=== PATIENT | male | born 1945 | race Caucasian/White ===

== ENCOUNTER 2020-12-08 10:58 | Outpatient (REF) | payer MEDICARE, SELFPAY ==
[2020-12-08 12:25] LABS: MANUAL DIFF FLAG NO
[2020-12-08 12:29] LABS: Basophils Percent Auto 0.7 % (0-2); Eosinophils Absolute Auto 0.1 X10*3/uL (0.0-0.4); Eosinophils Percent Auto 2.6 % (0-4); Hematocrit 39.4 % (42-52); Hemoglobin 12.8 g/dl (14.0-18.0); Imm Gran Abs Auto 0.02 X10*3/uL (0.00-0.03); Imm Gran Pct Auto 0.5 % (0.0-0.4); Mean Corpuscular HGB Conc 32.5 g/dl (31.0-36.0); Mean Corpuscular Volume 92.3 fL (80-98); Mean Platelet Volume 9.9 fL (9.4-12.4); Monocytes Absolute Auto 0.5 X10*3/uL (0.1-1.2); Monocytes Percent Auto 11.8 % (2-11); Neutrophils Absolute Auto 2.5 X10*3/uL (2.0-8.3); Neutrophils Percent Auto 60.4 % (45-73); Platelet Count 193 X10*3/uL (160-400); Red Blood Count 4.27 X10*6/uL (4.60-5.80); Red Cell Distribution Width 13.4 % (11.0-16.0); White Blood Count 4.2 X10*3/uL (4.8-10.8)
[2020-12-08 12:50] LABS: Alanine Aminotransferase 18 U/L (0-40); Albumin Level 4.1 g/dL (3.5-5.0); Alkaline Phosphatase 78 U/L (39-117); Anion Gap 11 (12-20); Aspartate Amino Transferase 19 U/L (5-37); Bilirubin Direct 0.2 mg/dL (0.0-0.5); Bilirubin Total 0.5 mg/dL (0.0-1.0); Blood Urea Nitrogen 13 mg/dL (9-16); Calcium 8.9 mg/dL (8.4-10.2); Carbon Dioxide 27 mmol/L (22-29); Chloride 106 mmol/L (96-108); Estimated Glomerular Filt Rate > 60; Magnesium 2.1 mg/dL (1.6-2.6); Potassium 5.2 mmol/L (3.3-5.1); Sodium 139 mmol/L (135-145); Total Protein 6.4 g/dL (6.5-8.0); Uric Acid 7.5 mg/dL (3.4-7.0)
[2020-12-08 12:58] LABS: Creatinine Urine 135.04 mg/dL; Protein/Creatinine Ratio, Ur 0.06 (<0.2); Total Protein Urine Random 8 mg/dL (<12)
[2020-12-08 12:59] LABS: Vitamin D 25-OH Total 22.4 ng/mL (>30)
[2020-12-10 10:36] LABS: Calcium (PTHI) 8.9 mg/dL (8.6-10.3); PTHI 80 pg/mL (14-64)
== END 2020-12-08 10:59 | disposition home or self-care (01) ==
LOC: HO.LAB 10:58
PROVIDERS: PCP Internal Medicine; Visit Provider Internal Medicine Nephrology
DX: I12.9 Hypertensive chronic kidney disease with stage 1 through stage 4 chronic kidney disease, or unspecified chronic kidney disease (principal); N18.2 Chronic kidney disease, stage 2 (mild); R80.9 Proteinuria, unspecified; E55.9 Vitamin D deficiency, unspecified; N25.81 Secondary hyperparathyroidism of renal origin; E87.5 Hyperkalemia; E87.1 Hypo-osmolality and hyponatremia; N13.8 Other obstructive and reflux uropathy
CPT/HCPCS: 36415; 80051; 80076; 82306; 82310; 82565; 83735; 83970; 84156; 84520; 84550; 85025

== ENCOUNTER 2021-07-09 12:14 | Outpatient (REF) | payer MEDICARE, SELFPAY ==
[2021-07-09 12:30] LABS: MANUAL DIFF FLAG NO
[2021-07-09 13:05] LABS: Basophils Percent Auto 0.6 % (0-2); Eosinophils Absolute Auto 0.2 X10*3/uL (0.0-0.4); Eosinophils Percent Auto 3.8 % (0-4); Hematocrit 38.6 % (42.0-52.0); Hemoglobin 12.8 g/dl (14.0-18.0); Imm Gran Abs Auto 0.02 X10*3/uL (0.00-0.03); Imm Gran Pct Auto 0.4 % (0.0-0.4); Lymphocytes Absolute Auto 1.2 X10*3/uL (1.2-4.9); Lymphocytes Percent Auto 23.3 % (20-40); Mean Corpuscular HGB Conc 33.2 g/dl (31.0-36.0); Mean Corpuscular Hemoglobin 30.3 pg (27.0-33.0); Mean Corpuscular Volume 91.3 fL (80.0-98.0); Mean Platelet Volume 9.7 fL (9.4-12.4); Monocytes Absolute Auto 0.6 X10*3/uL (0.1-1.2); Monocytes Percent Auto 11.2 % (2-11); Neutrophils Percent Auto 60.7 % (45-73); Platelet Count 186 X10*3/uL (160-400); Red Blood Count 4.23 X10*6/uL (4.60-5.80); Red Cell Distribution Width 13.1 % (11.0-16.0)
[2021-07-09 13:25] LABS: Anion Gap 9 (12-20); Blood Urea Nitrogen 15 mg/dL (9-16); Calcium 8.9 mg/dL (8.4-10.2); Carbon Dioxide 28 mmol/L (22-29); Chloride 102 mmol/L (96-108); Estimated Glomerular Filt Rate > 60; Magnesium 2.2 mg/dL (1.6-2.6); Phosphorus 2.9 mg/dL (2.7-4.5); Potassium 4.5 mmol/L (3.3-5.1); Sodium 134 mmol/L (135-145); Uric Acid 6.8 mg/dL (3.4-7.0)
[2021-07-09 13:44] LABS: Vitamin D 25-OH Total 14.8 ng/mL (>30)
[2021-07-09 13:44] LABS: Creatinine Urine 143.03 mg/dL; Protein/Creatinine Ratio, Ur 0.06 (<0.2); Total Protein Urine Random 8 mg/dL (<12)
[2021-07-10 18:01] LABS: Calcium (PTHI) 8.8 mg/dL (8.6-10.3); PTHI 91 pg/mL (14-64)
== END 2021-07-09 12:15 | disposition home or self-care (01) ==
LOC: HO.LAB 12:14
PROVIDERS: PCP Internal Medicine; Visit Provider Internal Medicine Nephrology
DX: I12.9 Hypertensive chronic kidney disease with stage 1 through stage 4 chronic kidney disease, or unspecified chronic kidney disease (principal); N18.2 Chronic kidney disease, stage 2 (mild); E87.1 Hypo-osmolality and hyponatremia; E87.5 Hyperkalemia
CPT/HCPCS: 36415; 80051; 82306; 82310; 82565; 83735; 83970; 84100; 84156; 84520; 84550; 85025

== ENCOUNTER → 2022-04-15 14:53 | Outpatient (BNVA) | payer MEDICARE, SELFPAY | PROVIDERS: PCP Internal Medicine; Visit Provider Surgery | DX: K64.8 Other hemorrhoids (principal) | CPT/HCPCS: 46600; 99202 ==

== ENCOUNTER 2022-04-16 09:16 | Emergency (ER) | payer MEDICARE, SELFPAY ==
[2022-04-16] VITALS (9 sets, daily range): BP systolic 134–180; BP diastolic 74–96; PULSE 59–82; RESP 13–18; TEMP 36.7–37.1; O2SAT 98–100; BMI 26.1
--- NOTE | ~2022-04-16 | CT_ITS ---
EXAMINATION: CT HEAD WITHOUT CONTRAST CLINICAL INFORMATION: Dizziness. COMPARISON: CT scans of the brain dating between October 20, 2015 and April 18, 2008. TECHNIQUE: Contiguous axial imaging was performed from the skull base to vertex without intravenous administration of contrast. This CT examination was performed using dose optimization techniques as appropriate, variously including the following: *Automated exposure control *Adjustment of mA and/or kV according to patient size (this includes techniques or standardized protocols for targeted exams where dose is matched to indication/reason for exam; i.e. extremities or head) *Use of iterative reconstruction technique DLP: 676 mGy-cm FINDINGS: No intracranial hemorrhage, large infarction, or mass lesion is seen. No extra-axial collection is appreciated. The ventricles are normal in size and configuration without evidence of hydrocephalus. Left maxillary sinus mucosal thickening. Mild mucosal thickening involving the frontal infundibula, bilaterally. The mastoid air cells are clear. Bilateral lens extractions. CT/CT head/brain wo IV con IMPRESSION: No acute intracranial finding. Chronic sinusitis.
--- NOTE | ~2022-04-16 | XR_ITS ---
EXAMINATION: XR CHEST CLINICAL INFORMATION: Shortness of breath COMPARISON: October 20, [address] scan of July 21, 2012 TECHNIQUE: Frontal view of the chest was obtained. FINDINGS: No significant abnormality is noted involving the heart, lungs, mediastinum, bony thorax or soft tissues. Stable discoid scar left base. XR/XR chest 1V IMPRESSION: No acute disease.
--- NOTE | ~2022-04-16 | CT_ITS ---
EXAMINATION: CT ANGIOGRAM OF THE HEAD CT ANGIOGRAM OF THE NECK CLINICAL INFORMATION: Lightheadedness. COMPARISON: CT scan of the head earlier 04/16/2022. TECHNIQUE: Test bolus series followed by intravenous administration 17 mL of Omnipaque 350. Helical imaging was performed in the axial plane from the mediastinum to the skull vertex. The degree of stenosis is based off NASCET criteria. The data was processed at the cytotechnologist workstation for generation of MIP images. Three-dimensional volume rendered reformatted images were also generated at an offline 3-D workstation. This CT examination was performed using dose optimization techniques as appropriate, variously including the following: *Automated exposure control *Adjustment of mA and/or kV according to patient size (this includes techniques or standardized protocols for targeted exams where dose is matched to indication/reason for exam; i.e. extremities or head) *Use of iterative reconstruction technique DLP: 1556 mGy-cm. FINDINGS: CT Head: There is no evidence of acute intracranial hemorrhage or territorial infarction. No abnormal mass-effect or midline shift is seen. Irving to white matter differentiation is well preserved. No extra-axial fluid collections are identified. There is no abnormal enhancement. The ventricles and sulci are slightly commensurately prominent consistent with diffuse volume loss. There is mild low attenuation in the periventricular and subcortical white matter, most consistent with chronic microvascular ischemic changes. There are no acute osseous or soft tissue abnormalities. There are sequelae, of prior paranasal sinus surgery, likely prior right maxillary Boogie-Khurram procedure. There is likely a polyp in the left nasal cavity extending through the posterior nares. There is mucoperiosteal thickening in the left greater than right maxillary sinuses. There is mild opacification of the bilateral ethmoid sinuses. CTA Neck: There is a classic configuration of the aortic arch, with mild atheromatous calcification at the origins of the bilateral subclavian arteries. The great vessels of the neck are widely patent. The common carotid arteries are patent bilaterally. There are mild atheromatous calcifications in the carotid bifurcations bilaterally without flow-limiting stenosis. The cervical internal carotid arteries have uniform caliber and opacify normally. The origins of the vertebral arteries are well demonstrated. Both vertebral arteries are patent throughout their cervical course extending intradurally. The vertebral arteries are codominant. Nonvascular: There is no cervical lymphadenopathy. The thyroid gland is normal in size. There are moderate spondylitic and facet arthropathic changes in the cervical spine. The visualized upper lung ledezma are well-aerated. CTA Head: There are mild atheromatous calcifications of the cavernous internal carotid arteries; otherwise the intracranial internal carotid arteries and their bifurcations appear normal. The middle and anterior cerebral arteries bilaterally demonstrate normal caliber with no evidence of focal stenosis, aneurysm or vascular malformation. There is normal arborization of the middle cerebral artery branches. The anterior communicating artery is normal. In the posterior circulation, the intradural vertebral arteries are codominant and have uniform caliber. The basilar artery appears normal. The left posterior cerebral artery has a origin. The posterior cerebral arteries have normal caliber bilaterally. The venous sinuses opacify normally. CT/CT angio head neck IMPRESSION: CT head and neck: 1. There are no acute bleeds or territorial infarcts. No masses are demonstrated. There is no abnormal enhancement. 2. There are chronic microvascular ischemic changes and there is diffuse volume loss. 3. There is no cervical lymphadenopathy. There is spondylosis in the cervical spine. CTA head and neck: 1. There are no flow-limiting stenoses in the upper thoracic and cervical vascular structures. There are mild atheromatous calcifications. 2. Intracranially no focal stenoses, aneurysms or vascular malformations.
--- NOTE | 2022-04-16 09:36 | ECG_ITS ---
Test Reason : SOB Blood Pressure : / mmHG Vent. Rate : 069 BPM Atrial Rate : 069 BPM P-R Int : 204 ms QRS Dur : 092 ms QT Int : 392 ms P-R-T Axes : 060 038 038 degrees QTc Int : 420 ms Normal sinus rhythm Normal ECG When compared with ECG of 30-SEP-2016 11:02, No significant change was found Referred By: Claire Lim Electronically Signed By:REBECA KILLIAN MD
--- NOTE | 2022-04-16 09:43 | ED.SOB ---
HPI - SOB/Dyspnea General Chief Complaint: Dyspnea Stated Complaint: SOB/high BP Time Seen by Provider: 04/16/22 09:33 Source: patient Mode of arrival: ambulatory Limitations: no limitations History of Present Illness HPI Narrative: 76 yo male with history of HTN, HLD, CKDII, anemia, nephrolithiasis with left renal atrophy who presents to the ER for evaluation of lightheadedness and SOB that occurred while at work 2 hours ago and have improved since. He states he was doing his regular work at the [employer], mild-moderately strenuous activity when he started to feel unwell. He felt lightheaded and SOB, like he needed to take deep breaths. He sat down and told his co-workers he didn't feel well. He was pale but not diaphoretic. Hx BP dropping in the past so he drank 4 water bottles because he thought he was dehydrated. He slowly started to feel better. BP checked at work and was 200 systolic. His Denies any chest pain during the events. He took his home norvasc and metoprolol. No nausea, vomiting or abdominal pain. MD elicited complaint: shortness of breath Onset (ago): hour(s) Timing: improved Severity: moderate Exacerbating factors: exertion and movement Relieving factors: rest Associated symptoms: lightheadedness Treatment prior to arrival: none Related Data Home oxygen amount: none Home Medications Medication Instructions Recorded Confirmed metoprolol succinate 100 mg 100 mg PO DAILY 04/15/22 04/15/22 tablet,extended release 24 hr Previous Rx's Medication Instructions Recorded amlodipine 5 mg tablet 5 mg PO DAILY #90 tabs 09/09/20 hydrocortisone 2.5 % topical cream 1 appl NY BID-QID PRN hemorrhoids 04/15/22 with perineal applicator #30 grams hydrocortisone acetate 25 mg 25 mg NY BID PRN hemorrhoid pain 04/15/22 rectal suppository (Anucort-HC) #24 ea Allergies Allergy/AdvReac Type Severity Reaction Status Date / Time No Known Allergies Allergy Mild NKA Unverified 04/15/22 15:07 hydrochlorothiazide Allergy Unknown Alcohol Verified 04/15/22 15:07 hyponatremia lisinopril Allergy Unknown hyperkalemi Verified 04/15/22 15:07 a Review of Systems Review of Systems: Constitutional: No Fever, No Chills ENT/Mouth: No sore throat, No Rhinorrhea, No Swallowing Difficulty Eyes: No Eye Pain, No Swelling, No Redness Cardiovascular: No Chest Pain, + SOB, No Orthopnea, No Edema Respiratory: No Cough, No Sputum, No Wheezing, No dyspnea Gastrointestinal: No Nausea, No Vomiting, No Diarrhea, No abdominal Pain, No Hematochezia, No Melena Genitourinary: No Dysuria, No Urinary Frequency, No Hematuria Musculoskeletal: No joint pain, No Myalgias Skin: No Skin Lesions, No rash Neuro: No Weakness, No Numbness, + Dizziness, No Headache Psych: No Anxiety/Panic, No Depression Heme/Lymph: No Bruising, No Lymphadenopathy Endocrine: No Polyuria, + Polydipsia PMFSH Past Medical History Medical History Anemia Hemorrhoids with complication History of hemorrhoids Hypercholesterolemia Hypertension Left renal stone Solitary kidney Vitamin D deficiency Surgical History H/O inguinal hernia repair H/O lithotripsy History of tonsillectomy History of umbilical hernia repair Social History Social History Alcohol intake: current Alcohol intake frequency: 3 or more drinks per day Alcohol type: beer Patient Tobacco Use Status: Never used Tobacco Use of substances other than those prescribed or required for medical reasons: No Advance Directives: Yes Advance Directives Information Provided: Yes Advance Directives on File: No Physical Exam Vital Signs: Vital Signs: Last Vital Signs Temp 98.7 F 04/16/22 15:39 Pulse 67 04/16/22 15:39 Resp 16 04/16/22 15:39 BP 166/87 H 04/16/22 15:39 Pulse Ox 99 04/16/22 15:39 O2 Del Method 04/16/22 15:39 BMI result Body Mass Index 26.1 Appearance: Alert. Oriented X3. No acute distress. Eyes: Pupils equal, round and reactive to light. ENT: Pharynx normal. Neck: Normal inspection. Neck supple. CVS: Normal heart rate and rhythm. Pulses normal. Respiratory: No respiratory distress. Breath sounds normal. Abdomen: Soft and nontender. +BS x4 Skin: Skin warm and dry. Normal skin color. Normal skin turgor. No rashes. Extremities: No lower extremity edema. Neuro: Oriented X 3. No motor deficit. No sensory deficit. CN II-XII intact. Normal finger to nose and heel to lockhart bilaterally. Strength is equal and symmetrical throughout. Course Course Course Narrative: 76 yo male with history of HTN, HLD who presents to the ER for evaluation of lightheadedness, high BP and SOB that started at 8am today. Improved with laying down, when he stands up he is slightly lightheaded and feels off. On arrival to the ER his BP is 180/96, normal HR and oxygenation. Lungs are clear. He took his home Norvasc 5 mg and Metoprolol 100 mg this morning. Neuro exam is nonfocal. Steady gait with normal cerebellar function, doubt posterior stroke as symptoms are relieved with laying down. Will get labs, EKG, trop, CT head, DDIMER and monitor. Reevaluation(s) Reevaluation #1: Labs showing sodium 127. Not on diruetics or psych meds. He did drink 4 bottles of water when he was not feeling well at work this morning because he thought he was dehydrated. He says the last time he felt this way his BP was low. Current BP improved to the 150s systolic without intervention. Will give 1L NS bolus, check orthostatic VS and repeat sodium with repeat troponin. Inital trop neg, DDIMER neg. Reevaluation #2: 2nd troponin negative. He feels better but still off. He has intermittent lightheadeded but not constant. +Orthostatics with drop in BP 160 --> 130s with standing but never hypotensive. Case d/w Dr. Catalan - will get CTA head/neck to look at the vasculature. Given his symptoms come/go and seem to be more positional, doubt posterior CVA. Reevaluation #3: CTA head/neck - No acute intracranial findings. There is moderate chronic microangiopathy.? 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 - Atherosclerotic calcification results in a moderate stenosis of the left vertebral artery at its dural insertion. No additional significant arterial stenoses within the neck.? - No acute arterial occlusions intracranially. Patient is feeling better but he is worried about his BP, currently 160/80. He is ambulatory with no current symptoms. He would like to go home. He will follow-up with Dr. winkler early next week. He is given strict return precautions and comfortable DC home today he will monitor his blood pressure at home and keep a record with his 's blood pressure cuff. MDM - SOB/Dyspnea Medical Records Attestation: I reviewed the patient's medical records. Lab Data Attestation: I reviewed the patient's lab results. Result diagrams: 04/16/22 10:29 04/16/22 13:23 Labs: Lab Results 04/16/22 04/16/22 04/16/22 Range/Units 10:19 10: 10:29 WBC 4.3 L (4.8-10.8) X10*3/uL RBC 4.40 L (4.60-5.80) X10*6/uL Hgb 13.4 L (14.0-18.0) g/dl Hct 39.0 L (42.0-52.0) % MCV 88.6 (80.0-98.0) fL MCH 30.5 (27.0-33.0) pg MCHC 34.4 (31.0-36.0) g/dl RDW 12.7 (11.0-16.0) % Plt Count 169 (160-400) X10*3/uL MPV 9.3 L (9.4-12.4) fL Immature Gran % (Auto) 0.2 (0.0-0.4) % Neut % (Auto) 70.3 (45-73) % Lymph % (Auto) 17.3 L (20-40) % Crane % (Auto) 10.5 (2-11) % Eos % (Auto) 1.2 (0-4) % Baso % (Auto) 0.5 (0-2) % Lymph # (Auto) 0.7 L (1.2-4.9) X10*3/uL Crane # (Auto) 0.5 (0.1-1.2) X10*3/uL Eos # (Auto) 0.1 (0.0-0.4) X10*3/uL Baso # (Auto) 0.0 (0.0-0.2) X10*3/uL Abs Immat Gran (auto) 0.01 (0.00-0.03) X10*3/uL Absolute Neuts (auto) 3.0 (2.0-8.3) x10*3/uL Absolute Nucleated RBC 0.000 (0.0-0.012) X10*3/uL Nucleated RBC % (auto) 0.0 (0.0-0.2) /100WBC D-Dimer High Sensitivty NG/ML Sodium 127 L (135-145) mmol/L Potassium 4.3 (3.3-5.1) mmol/L Chloride 94 L (96-108) mmol/L Carbon Dioxide 22 (22-29) mmol/L Anion Gap 15 (12-20) BUN 12 (9-16) mg/dL Creatinine 0.82 (0.5-1.4) mg/dL Estim Creat Clear Calc 80.3 Estimated GFR > 60 Random Glucose 103 (60-115) mg/dL Osmolality (281-305) mosm/kg Calcium 8.6 (8.4-10.2) mg/dL Magnesium 2.2 (1.6-2.6) mg/dL Total Bilirubin 0.4 (0.0-1.0) mg/dL Direct Bilirubin 0.2 (0.0-0.5) mg/dL AST 23 (5-37) U/L ALT 16 (0-40) U/L Alkaline Phosphatase 73 (39-117) U/L Troponin I High Sens (<3.5-35.0) ng/L B-Natriuretic Peptide (<100) pg/mL Total Protein 6.9 (6.5-8.0) g/dL Albumin 4.1 (3.5-5.0) g/dL COVID-19 (OPAL) Negative (Negative) COVID-19 Clin Com See Note 04/16/22 04/16/22 04/16/22 Range/Units 10:29 10:29 10:29 WBC (4.8-10.8) X10*3/uL RBC (4.60-5.80) X10*6/uL Hgb (14.0-18.0) g/dl Hct (42.0-52.0) % MCV (80.0-98.0) fL MCH (27.0-33.0) pg MCHC (31.0-36.0) g/dl RDW (11.0-16.0) % Plt Count (160-400) X10*3/uL MPV (9.4-12.4) fL Immature Gran % (Auto) (0.0-0.4) % Neut % (Auto) (45-73) % Lymph % (Auto) (20-40) % Crane % (Auto) (2-11) % Eos % (Auto) (0-4) % Baso % (Auto) (0-2) % Lymph # (Auto) (1.2-4.9) X10*3/uL Crane # (Auto) (0.1-1.2) X10*3/uL Eos # (Auto) (0.0-0.4) X10*3/uL Baso # (Auto) (0.0-0.2) X10*3/uL Abs Immat Gran (auto) (0.00-0.03) X10*3/uL Absolute Neuts (auto) (2.0-8.3) x10*3/uL Absolute Nucleated RBC (0.0-0.012) X10*3/uL Nucleated RBC % (auto) (0.0-0.2) /100WBC D-Dimer High Sensitivty < 150 NG/ML Sodium (135-145) mmol/L Potassium (3.3-5.1) mmol/L Chloride (96-108) mmol/L Carbon Dioxide (22-29) mmol/L Anion Gap (12-20) BUN (9-16) mg/dL Creatinine (0.5-1.4) mg/dL Estim Creat Clear Calc Estimated GFR Random Glucose (60-115) mg/dL Osmolality 263 L (281-305) mosm/kg Calcium (8.4-10.2) mg/dL Magnesium (1.6-2.6) mg/dL Total Bilirubin (0.0-1.0) mg/dL Direct Bilirubin (0.0-0.5) mg/dL AST (5-37) U/L ALT (0-40) U/L Alkaline Phosphatase (39-117) U/L Troponin I High Sens < 3.5 (<3.5-35.0) ng/L B-Natriuretic Peptide 27 (<100) pg/mL Total Protein (6.5-8.0) g/dL Albumin (3.5-5.0) g/dL COVID-19 (OPAL) (Negative) COVID-19 Clin Com 04/16/22 04/16/22 Range/Units 13:23 13:23 WBC (4.8-10.8) X10*3/uL RBC (4.60-5.80) X10*6/uL Hgb (14.0-18.0) g/dl Hct (42.0-52.0) % MCV (80.0-98.0) fL MCH (27.0-33.0) pg MCHC (31.0-36.0) g/dl RDW (11.0-16.0) % Plt Count (160-400) X10*3/uL MPV (9.4-12.4) fL Immature Gran % (Auto) (0.0-0.4) % Neut % (Auto) (45-73) % Lymph % (Auto) (20-40) % Crane % (Auto) (2-11) % Eos % (Auto) (0-4) % Baso % (Auto) (0-2) % Lymph # (Auto) (1.2-4.9) X10*3/uL Crane # (Auto) (0.1-1.2) X10*3/uL Eos # (Auto) (0.0-0.4) X10*3/uL Baso # (Auto) (0.0-0.2) X10*3/uL Abs Immat Gran (auto) (0.00-0.03) X10*3/uL Absolute Neuts (auto) (2.0-8.3) x10*3/uL Absolute Nucleated RBC (0.0-0.012) X10*3/uL Nucleated RBC % (auto) (0.0-0.2) /100WBC D-Dimer High Sensitivty NG/ML Sodium 130 L (135-145) mmol/L Potassium (3.3-5.1) mmol/L Chloride (96-108) mmol/L Carbon Dioxide (22-29) mmol/L Anion Gap (12-20) BUN (9-16) mg/dL Creatinine (0.5-1.4) mg/dL Estim Creat Clear Calc Estimated GFR Random Glucose (60-115) mg/dL Osmolality (281-305) mosm/kg Calcium (8.4-10.2) mg/dL Magnesium (1.6-2.6) mg/dL Total Bilirubin (0.0-1.0) mg/dL Direct Bilirubin (0.0-0.5) mg/dL AST (5-37) U/L ALT (0-40) U/L Alkaline Phosphatase (39-117) U/L Troponin I High Sens < 3.5 (<3.5-35.0) ng/L B-Natriuretic Peptide (<100) pg/mL Total Protein (6.5-8.0) g/dL Albumin (3.5-5.0) g/dL COVID-19 (OPAL) (Negative) COVID-19 Clin Com ECG Data Attestation: I personally reviewed and interpreted this ECG as follows: ECG interpretation date: 04/16/22 ECG interpretation time: 09:59 Prior ECG tracings: available for review Interpretation: normal sinus rhythm, HR 69 bpm, normal QTC, normal QRS, no ST segment elevation or depression Critical Care Time Critical Care Time Critical Care Time: No Discharge Plan Discharge Clinical Impression: Intermittent lightheadedness, Hypertension Patient Disposition: Home, Self-Care Instructions: Hyponatremia (ED), Hypertension (ED) Additional Instructions: Your labs showed a mildly low sodium level. Your CT scans today did not show any significant abnormalities. Recommend rest this weekend. Follow up with your doctor early next week. If you develop new or worsening symptoms call 911 or come back to the ER for further evaluation. Prescriptions: No Action amlodipine 5 mg tablet 5 mg PO DAILY Qty: 90 1RF hydrocortisone 2.5 % cream with perineal applicator 1 appl [place] BID-QID PRN (Reason: hemorrhoids) Qty: 30 0RF metoprolol succinate 100 mg tablet extended release 24 hr 100 mg PO DAILY hydrocortisone acetate [Anucort-HC] 25 mg suppository 25 mg [place] BID PRN (Reason: hemorrhoid pain) Qty: 24 0RF Referrals: Po,Dori Cortes MD [Primary Care Provider] -
[2022-04-16 10:38] LABS: MANUAL DIFF FLAG NO
[2022-04-16 10:45] LABS: Basophils Percent Auto 0.5 % (0-2); Eosinophils Absolute Auto 0.1 X10*3/uL (0.0-0.4); Eosinophils Percent Auto 1.2 % (0-4); Hemoglobin 13.4 g/dl (14.0-18.0); Imm Gran Abs Auto 0.01 X10*3/uL (0.00-0.03); Imm Gran Pct Auto 0.2 % (0.0-0.4); Lymphocytes Absolute Auto 0.7 X10*3/uL (1.2-4.9); Lymphocytes Percent Auto 17.3 % (20-40); Mean Corpuscular HGB Conc 34.4 g/dl (31.0-36.0); Mean Corpuscular Hemoglobin 30.5 pg (27.0-33.0); Mean Corpuscular Volume 88.6 fL (80.0-98.0); Mean Platelet Volume 9.3 fL (9.4-12.4); Monocytes Absolute Auto 0.5 X10*3/uL (0.1-1.2); Monocytes Percent Auto 10.5 % (2-11); Neutrophils Percent Auto 70.3 % (45-73); Platelet Count 169 X10*3/uL (160-400); Red Cell Distribution Width 12.7 % (11.0-16.0); White Blood Count 4.3 X10*3/uL (4.8-10.8)
[2022-04-16 10:59] LABS: D Dimer High Sensitivity < 150 NG/ML
[2022-04-16 11:02] LABS: COVID-19 Test Negative (Negative)
[2022-04-16 11:07] LABS: Alanine Aminotransferase 16 U/L (0-40); Albumin Level 4.1 g/dL (3.5-5.0); Alkaline Phosphatase 73 U/L (39-117); Anion Gap 15 (12-20); Aspartate Amino Transferase 23 U/L (5-37); Bilirubin Direct 0.2 mg/dL (0.0-0.5); Bilirubin Total 0.4 mg/dL (0.0-1.0); Blood Urea Nitrogen 12 mg/dL (9-16); Calcium 8.6 mg/dL (8.4-10.2); Carbon Dioxide 22 mmol/L (22-29); Chloride 94 mmol/L (96-108); Creatinine Clr Calc Pharmacy 80.3; Estimated Glomerular Filt Rate > 60; Glucose Random 103 mg/dL (60-115); Magnesium 2.2 mg/dL (1.6-2.6); Potassium 4.3 mmol/L (3.3-5.1); Sodium 127 mmol/L (135-145); Total Protein 6.9 g/dL (6.5-8.0)
[2022-04-16 11:11] LABS: B Type Natriuretic Peptide 27 pg/mL (<100); Troponin-I High Sensitivity < 3.5 ng/L (<3.5-35.0)
[2022-04-16 11:54] LABS: Osmolality, Serum 263 mosm/kg (281-305)
[2022-04-16] MEDS: 0.9 % Sodium Chloride 1,000 ML 999 ML IVCONT ×2 (12:00→14:51)
[2022-04-16 13:39] LABS: Sodium 130 mmol/L (135-145)
[2022-04-16 13:48] LABS: Troponin-I High Sensitivity < 3.5 ng/L (<3.5-35.0)
[2022-04-16] MEDS: iohexoL 350 MG/ML 100 ML INFUS..BTL IV (16:18)
--- NOTE | 2022-04-16 17:01 | PC.NURSE ---
patient had multiple episode of loose stool stool ,care given ,patient resting in bed .
== END 2022-04-16 18:28 | disposition home or self-care (01) ==
PROVIDERS: Physician Assistant; Emergency Provider Emergency Medicine; PCP Internal Medicine
DX: R42 Dizziness and giddiness (principal); I12.9 Hypertensive chronic kidney disease with stage 1 through stage 4 chronic kidney disease, or unspecified chronic kidney disease; N18.30 Chronic kidney disease, stage 3 unspecified; Z20.822 Contact with and (suspected) exposure to COVID-19; R06.02 Shortness of breath; E78.5 Hyperlipidemia, unspecified; E78.00 Pure hypercholesterolemia, unspecified; Z79.899 Other long term (current) drug therapy
CPT/HCPCS: 36415; 70450; 70496; 70498; 71045; 80048; 80076; 83735; 83880; 83930; 84295; 84484; 85025; 85379; 87635; 93005; 99284; 99285; Q9967

== ENCOUNTER 2022-08-02 06:00 | Outpatient (REF) | payer MEDICARE, SELFPAY ==
[2022-08-02 06:03] LABS: MANUAL DIFF FLAG NO
[2022-08-02 07:42] LABS: Basophils Percent Auto 0.9 % (0-2); Eosinophils Absolute Auto 0.2 X10*3/uL (0.0-0.4); Eosinophils Percent Auto 3.5 % (0-4); Hematocrit 41.4 % (42.0-52.0); Imm Gran Abs Auto 0.02 X10*3/uL (0.00-0.03); Imm Gran Pct Auto 0.4 % (0.0-0.4); Lymphocytes Absolute Auto 1.1 X10*3/uL (1.2-4.9); Lymphocytes Percent Auto 23.8 % (20-40); Mean Corpuscular HGB Conc 33.8 g/dl (31.0-36.0); Mean Corpuscular Hemoglobin 30.4 pg (27.0-33.0); Mean Corpuscular Volume 89.8 fL (80.0-98.0); Mean Platelet Volume 9.5 fL (9.4-12.4); Monocytes Absolute Auto 0.5 X10*3/uL (0.1-1.2); Monocytes Percent Auto 11.7 % (2-11); Neutrophils Absolute Auto 2.7 x10*3/uL (2.0-8.3); Neutrophils Percent Auto 59.7 % (45-73); Platelet Count 233 X10*3/uL (160-400); Red Blood Count 4.61 X10*6/uL (4.60-5.80); Red Cell Distribution Width 12.8 % (11.0-16.0); White Blood Count 4.5 X10*3/uL (4.8-10.8)
[2022-08-02 08:19] LABS: Alanine Aminotransferase 14 U/L (0-40); Albumin Level 3.9 g/dL (3.5-5.0); Alkaline Phosphatase 68 U/L (39-117); Anion Gap 14 (12-20); Aspartate Amino Transferase 19 U/L (5-37); Bilirubin Total 0.7 mg/dL (0.0-1.0); Blood Urea Nitrogen 16 mg/dL (9-16); Calcium 8.9 mg/dL (8.4-10.2); Carbon Dioxide 26 mmol/L (22-29); Chloride 99 mmol/L (96-108); Cholesterol 211 mg/dL; Estimated Glomerular Filt Rate > 60; Glucose Random 96 mg/dL (60-115); HDL Cholesterol 89 mg/dL; LDL Cholesterol Calculated 114 mg/dl; Sodium 134 mmol/L (135-145); Total Protein 6.4 g/dL (6.5-8.0); Triglycerides 43 mg/dL
[2022-08-02 08:37] LABS: Folate 7.4 ng/mL (> or = 4.0); Free T4 (Free Thyroxine) 0.95 ng/dL (0.71-1.85); Thyroid Stimulating Hormone 3.24 uIU/mL (0.32-4.0); Vitamin B12 323 pg/mL (200-900)
== END 2022-08-02 06:01 | disposition home or self-care (01) ==
LOC: HO.LAB 06:00
PROVIDERS: PCP Internal Medicine; Visit Provider Internal Medicine
DX: E78.00 Pure hypercholesterolemia, unspecified (principal)
CPT/HCPCS: 36415; 80053; 80061; 82607; 82746; 84439; 84443; 85025

== ENCOUNTER 2022-12-28 10:32 | Emergency (ER) | payer MEDICARE, SELFPAY ==
[2022-12-28 10:36] VITALS: BP 175/91; PULSE 93; RESP 16; TEMP 36.5; O2SAT 99; BMI 26.5
--- NOTE | 2022-12-28 10:48 | ED.SKABFB ---
HPI - Skin/Abscess/Foreign Bdy General Chief complaint: Skin/Abscess/Foreign Body Stated complaint: Cellulitis Time Seen by Provider: 12/28/22 10:40 Source: patient Mode of arrival: ambulatory Limitations: no limitations History of Present Illness HPI narrative: 77-year-old male with a history of high blood pressure and high cholesterol presents to the ER with complaints of itching rash to the right lower leg for the last 3 days. Patient reports he went yesterday to urgent care and was given a prescription for cephalexin. He has taken 4 tablets since he was given the prescription. He feels today that the rash is more red in color which prompted his visit. He does not feel that it has spread. He denies any fevers, chills. He describes the rash is itching but denies any pain or burning of the site. He has been outside in his yd doing yd work but not in the last week. He does report an injury in August the right lower leg with a chronic wound that has not healed. At times this does get red and swollen. Related Data Home Medications Medication Instructions Recorded Confirmed metoprolol succinate 100 mg 100 mg PO DAILY 04/15/22 04/15/22 tablet,extended release 24 hr Previous Rx's Medication Instructions Recorded amlodipine 5 mg tablet 5 mg PO DAILY #90 tabs 09/09/20 hydrocortisone 2.5 % topical cream 1 appl MI BID-QID PRN hemorrhoids 04/15/22 with perineal applicator #30 grams hydrocortisone acetate 25 mg 25 mg MI BID PRN hemorrhoid pain 04/15/22 rectal suppository (Anucort-HC) #24 ea hydrocortisone 1 % topical ointment 1 appl topical BID #28.35 grams 12/28/22 mupirocin 2 % topical ointment 1 appl topical BID #22 grams 12/28/22 Allergies Allergy/AdvReac Type Severity Reaction Status Date / Time No Known Allergies Allergy Mild NKA Verified 05/03/22 12:28 hydrochlorothiazide Allergy Unknown Alcohol Verified 05/03/22 12:28 hyponatremia lisinopril Allergy Unknown hyperkalemi Verified 05/03/22 12:28 a Review of Systems Review of Systems: Yes all other systems are reviewed and are negative Constitutional: Constitutional: Reports no additional constitutional complaints, Denies body ache(s), Denies chills, Denies fever(s), Denies headache(s) and Denies weakness Eyes: Eyes: Reports no additional eye complaints and Denies change in vision ENT: Reports system reviewed and no additional complaints, except as documented, Denies dizziness, Denies headache(s), Denies nasal congestion, Denies nasal discharge and Denies neck pain Cardiovascular: Cardiovascular: Reports no additional cardiovascular complaints, Denies chest pain, Denies leg edema and Denies dyspnea Respiratory: Respiratory: Reports no additional respiratory complaints, Denies cough and Denies dyspnea Gastrointestinal: Gastrointestinal: Reports no additional gastrointestinal complaints, Denies abdominal pain, Denies diarrhea, Denies nausea and Denies vomiting Genitourinary: Genitourinary: Denies urinary incontinence Musculoskeletal: Musculoskeletal: Reports no additional musculoskeletal complaints, Denies back pain, Denies arthralgias, Denies joint swelling, Denies neck pain, Denies numbness and Denies tingling Integumentary/Breasts: Skin/Breast: Reports system reviewed and no additional complaints, except as docu and Reports rash Neurologic: Reports system reviewed and no additional complaints, except as documented, Denies Abnormal speech present, Denies dizziness, Denies headache(s), Denies numbness, Denies tingling and Denies weakness PMFSH Past Medical History Attestation statement: The following information was validated with the patient. Source: old records reviewed and nursing notes reviewed Medical History Alcohol abuse Anemia Hemorrhoids with complication History of hemorrhoids Hypercholesterolemia Hypertension Left renal stone Solitary kidney Vitamin D deficiency Surgical History H/O inguinal hernia repair H/O lithotripsy History of tonsillectomy History of umbilical hernia repair Social History Social History Housing: House Alcohol intake: never Patient Tobacco Use Status: Never used Tobacco Smoked in Last 30 Days: No e-Cigarette/Vaping Use: Never Used Second Hand Smoke Exposure: No Use of substances other than those prescribed or required for medical reasons: No Advance Directives: Yes Advance Directives Information Provided: No Advance Directives on File: No Current occupational status: employed Cognitive needs: No Hearing needs: No Vision needs: Yes Physical Exam Vital Signs: Vital Signs: Last Vital Signs Temp 97.7 F 12/28/22 10:36 Pulse 93 12/28/22 10:36 Resp 16 12/28/22 10:36 BP 175/91 H 12/28/22 10:36 Pulse Ox 99 12/28/22 10:36 O2 Del Method Room Air 12/28/22 10:36 BMI result Body Mass Index 26.5 Const: General: cooperative, healthy appearing, comfortable and no acute distress Orientation/consciousness: patient oriented x3 Limitations: no limitations HEENT: Head: Yes normal to inspection Ears: hearing grossly normal bilaterally General nose exam: Normal external nose present Face and sinus: Yes normal facial exam Mouth: Normal oral and palatal mucosa present Throat: Yes posterior oropharynx normal Eyes: General: appearance normal, both eyes and all related structures Pupils: Equal, round and reactive pupils present Neck: Neck: Yes normal visual inspection Chest: Chest palpation & inspection: normal inspection of the chest Resp: Effort & Inspection: normal respiratory effort Auscultation: clear to auscultation bilaterally Cardio: Rate: regular rate Rhythm: regular rhythm Peripheral pulses: Peripheral pulses 2+ throughout GI: Inspection: Yes normal to inspection Palpation (GI): Soft to palpation and nontender Auscultation: normal bowel sounds Back/Spine/Pelvis: Thoracic/Lumbar Spine: thoracic and lumbar spine normal to inspection Skin: General skin exam: no rashes or lesions noted Neuro: General: patient oriented x3, no focal motor deficits and normal sensation to monofilament Cranial nerves: Yes Equal, round and reactive pupils present Cognition (Neuro): normal cognition Speech: No Abnormal speech present Gait exam (Neuro): Normal gait present Motor exam (neuro): 5/5 motor strength present throughout Extrem: Other: Full range of motion of the foot and ankle on the right side. Normal DP and PT pulses Non sloughing, +blanchable Medical Decision Making Medical Decision Making MDM Narrative: This is a 77-year-old male who presents to the ER with complaints of itching rash to the right lower extremity for the last 3 days despite taking 4 doses of cephalexin No systemic signs or symptoms On exam the patient has a mild rash the right lower extremity over the medial aspect. There is some clear drainage noted. Full range of motion of the local joints. CMS intact distally. May be mild cellulitis versus contact dermatitis Patient can continue his cephalexin We will add a topical hydrocortisone mixed one-to-one with mupirocin Patient took pictures on his phone. I recommend he marked the site and return for any worsening signs or symptoms. Differential Diagnosis Differential Diagnoses: The differential diagnosis associated with the presentation includes Cellulitis, contact dermatitis Prescription Management I considered prescription management with: Antibiotic Patient is on cephalexin. The cellulitis mild. I do not believe that he needs any additional antibiotics or changes antibiotics which was discussed withhim Discharge Plan Discharge Clinical Impression: Cellulitis Patient Disposition: Home, Self-Care Instructions: Cellulitis (ED) Additional Instructions: Continue the antibiotics Mix the 2 topical creams together and apply twice daily Keep the site covered, clean and dry Return for increasing redness, fever greater than 100.4, vomiting, weakness Prescriptions: New mupirocin 2 % ointment 1 appl topical BID Qty: 22 0RF hydrocortisone 1 % ointment 1 appl topical BID Qty: 28.35 0RF No Action amlodipine 5 mg tablet 5 mg PO DAILY Qty: 90 1RF hydrocortisone 2.5 % cream with perineal applicator 1 appl MI BID-QID PRN (Reason: hemorrhoids) Qty: 30 0RF metoprolol succinate 100 mg tablet extended release 24 hr 100 mg PO DAILY hydrocortisone acetate [Anucort-HC] 25 mg suppository 25 mg MI BID PRN (Reason: hemorrhoid pain) Qty: 24 0RF Referrals: Po,Dori Cortes MD [Primary Care Provider] - 1 week Interventions: ED Discharge Assessment Last Done: 12/28/22 11:02 Discharge Date/Time: 12/28/22 11:03
== END 2022-12-28 11:03 | disposition home or self-care (01) ==
PROVIDERS: Emergency Provider Emergency Medicine Emergency Medical Services; PCP Internal Medicine
DX: L03.115 Cellulitis of right lower limb (principal)
CPT/HCPCS: 99283; 99284

== ENCOUNTER 2023-04-21 08:23 | Outpatient (AMB) | payer MEDICARE, SELFPAY ==
[2023-04-21 08:27] VITALS: BP 130/76; PULSE 73; O2SAT 98; BMI 26.4
--- NOTE | 2023-04-21 08:27 | A.OFFPC_ITS ---
Vital Signs 04/21/23 08:27 Height 5 ft 10 in Weight 184 lb BMI 26.4 BP 130/76 Blood Pressure Location Lt brachial Position Sitting Pulse 73 Pulse Source Pulse Oximeter Pulse Oximetry (%) 98 Oxygen Delivery Method Room Air Intake Visit Reasons: HTN, hypercholestermia,CKD Allergies No Known Allergies Allergy (Mild, Verified 04/21/23 08:28) NKA hydrochlorothiazide Allergy (Unknown, Verified 04/21/23 08:28) Alcohol hyponatremia lisinopril Allergy (Unknown, Verified 04/21/23 08:28) hyperkalemia Tobacco use date assessed: 04/21/23 Fall risk assessment: No Falls in past year Last assessed Fall Risk: 04/21/23 Dental Screening Dental Screen Date: 04/21/23 Did you have a dental visit in the last 12 months?: Yes Did you have a dental problem in the last 6 months where you did not have access to dental care?: No Was dental information given to patient?: Patient has dentist HPI HTN, hypercholestermia,CKD HPI Details 77-year-old male with hypertension chron ic kidney disease hypercholesterolemia last seen in April 2022 patient has a history of vert ebral artery stenosis and was referred to the vascular surgeon but repeat testing - normal. Review of the notes had a recent trip [facility] 12/28/2022 due to right ankle swelling treated as infection but on further evaluation was told allergic contact dermatitis. [facility] is asking for a letter to an oral surgeon due to surgery needed to take out a tooth -pointing to the R lower jaw. 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, left Alcohol abuse Hemorrhoids with complication Vitamin D deficiency History of hemorrhoids Hypercholesterolemia Left renal stone Solitary kidney Anemia Hypertension Surgical History H/O inguinal hernia repair H/O lithotripsy History of umbilical hernia repair History of tonsillectomy Social History Housing: House Alcohol intake: never Patient Tobacco Use Status: Never used Tobacco e-Cigarette/Vaping Use: Never Used Second Hand Smoke Exposure: No service: Yes Current occupational status: employed Cognitive needs: No Hearing needs: No Vision needs: Yes Questionnaire PHQ-9 Over the last 2 weeks, how often have you been bothered by any of the following problems? 1. Little interest or pleasure in doing things: not at all 2. Feeling down, depressed, or hopeless: not at all 3. Trouble falling or staying asleep, or sleeping too much: not at all 4. Feeling tired or having little energy: not at all 5. Poor appetite or overeating: not at all 6. Feeling bad about yourself - or that you are a failure or have let yourself or your family down: not at all 7. Trouble concentrating on things, such as reading the newspaper or watching television: not at all 8. Moving or speaking so slowly that other people could have noticed. Or the opposite - being so fidgety or restless that you have been moving around a lot more than usual: not at all 9. Thoughts that you would be better off or of hurting yourself in some way: not at all Total score: 0 Depression Screening Interpretation: Negative Depression Screening Done: Yes Source: Developed by Drs. Chaparro Sheppard, Evelyn Del Rosario, Segundo Mckeon and colleagues, with an educational maria del rosario from [employer]. Thrive Questionnaire Date Thrive assessed: 04/21/23 I am a: Patient What is your living situation today?: I have a steady place to live Within the past 12 months, did the food you bought not last and you didn't have the money to get more?: Never true Within the past 12 months, did you worry whether your food would run out before you got money to buy more?: Never true Do you have trouble paying for medicines?: No Do you have trouble getting transportation to medical appointments?: No Do you have trouble paying your heating and electricity bill?: No Do you have trouble taking care of your child, family member or friend?: No Do you have trouble with day-to-day activities such as bathing, preparing meals, shopping, managing finances, etc.?: No Are you currently unemployed and looking for a job?: No Are you interested in more education?: No Currently or been in a relationship where the following occur: no concerns reported AUDIT C Alcohol Use Questionnaire (AUDIT-C) 1. How often do you have a drink containing alcohol?: Monthly or less 2. How many drinks containing alcohol do you have on a typical day when you are drinking?: 1 or 2 3. How often do you have six or more drinks on one occasion?: Never Total Score: 1 MELANIE-7 AMB Questionnaire MELANIE-7 Date MELANIE - 7 assessed: 04/21/23 Feeling nervous, anxious, or on edge: 0 = Not at all Not being able to stop or control worryin = Not at all Worrying too much about different things: 0 = Not at all Trouble relaxin = Not at all Being so restless that it is hard to sit still: 0 = Not at all Becoming easily annoyed or irritable: 0 = Not at all Feeling afraid as if something awful might happen: 0 = Not at all Total MELANIE-7 score (0-4 normal; 5-9 mild; 10-14 moderate; 15-21 severe): 0 Source: Developed by Drs. Chaparro Sheppard, Evelyn Del Rosario, Segundo Mckeon and colleagues, with an educational maria del rosario from [employer]. Physical exam (Primary Care) Vital Signs: Last Vital Signs Pulse 73 04/21/23 08:27 BP 130/76 04/21/23 08:27 Pulse Ox 98 04/21/23 08:27 Oxygen Delivery Method Room Air 04/21/23 08:27 BMI result Body Mass Index 26.4 Tobacco/Smoking Status: Tobacco use Status Tobacco use date assessed 04/21/23 04/21/23 08:34 Patient Tobacco Use Status Never used Tobacco 04/21/23 08:34 e-Cigarette/Vaping Use Never Used 04/21/23 08:34 PHQ-9: PHQ-9 Score PHQ-9: Total score 0 04/21/23 08:42 Depression Screening Interpretation: Negative Thrive Assessment: Date of Thrive Assessment Date Thrive assessed 04/21/23 04/21/23 08:34 Currently or been in a relationship where the following occur: no concerns reported Const General: alert; No acute distress Eyes Conjunctivae: conjunctivae normal Resp Auscultation: clear to auscultation bilaterally Cardio Rate: regular rate Rhythm: regular rhythm GI Inspection: Yes normal to inspection Extrem General: Yes normal to inspection and No edema Assessment and Plan Assessment & Plan (1) Hypertension: Code(s): I10 - Essential (primary) hypertension Plan: Continue with blood pressure medication. Decrease salt intake and exercise patient on amlodipine 5 mg once a day and metoprolol 100 mg once a day (2) Hypercholesterolemia: Code(s): E78.00 - Pure hypercholesterolemia, unspecified Plan: Avoid fried foods, chicken skin, eggs, butter margarine, pastries and meat. Be it pork or beef they have a lot of cholesterol LDL preferably near 70 and triglyceride of less than 150 patient will need blood work (3) Chronic kidney disease: Comment: Stage II, hypertrophic left kidney/obstructive uropathy Code(s): N18.9 - Chronic kidney disease, unspecified Plan: Keep well hydrated avoid NSAIDs (4) Stenosis of left vertebral artery: Comment: March 2022 calcified 4 mm saccular aneurysm projecting posteromedially from the paraclinoid segment of the left internal carotid artery. - Atherosclerotic calcification results in a moderate stenosis of the left vertebral artery at its dural insertion. No additional significant arterial stenoses within the neck. Repeat CT normal Code(s): I65.02 - Occlusion and stenosis of left vertebral artery Plan: Continues to be monitored- repeat testing - normal (5) Carotid aneurysm, left: Comment: March 2022 calcified 4 mm saccular aneurysm projecting posteromedially from the paraclinoid segment of the left internal carotid artery. - Atherosclerotic calcification results in a moderate stenosis of the left vertebral artery at its dural insertion. No additional significant arterial stenoses within the neck. , repeat CT normal Code(s): I72.0 - Aneurysm of carotid artery Plan: repeat testing normal Orders: Orders Complete Blood Count Auto Diff Today E78.00 - Pure hypercholesterolemia, unspecified Comprehensive Met. Panel Today E78.00 - Pure hypercholesterolemia, unspecified Free T4 (Free Thyroxine) Today E78.00 - Pure hypercholesterolemia, unspecified Thyroid Stimulating Hormone Today E78.00 - Pure hypercholesterolemia, unspecified Vitamin B12 and Folate Today E78.00 - Pure hypercholesterolemia, unspecified Lipid Panel Today E78.00 - Pure hypercholesterolemia, unspecified Coding Level of Care Code Est Pt Level 4 (38499) Diagnoses Hypertension I10 Hypercholesterolemia E78.00 Chronic kidney disease N18.9 Stenosis of left vertebral artery I65.02 Carotid aneurysm, left I72.0
== END 2023-04-21 09:05 | disposition home or self-care (01) ==
PROVIDERS: PCP Internal Medicine; Visit Provider Internal Medicine
DX: I12.9 Hypertensive chronic kidney disease with stage 1 through stage 4 chronic kidney disease, or unspecified chronic kidney disease (principal); E78.00 Pure hypercholesterolemia, unspecified; N18.9 Chronic kidney disease, unspecified; I72.0 Aneurysm of carotid artery; I65.02 Occlusion and stenosis of left vertebral artery; Z23 Encounter for immunization
CPT/HCPCS: 90471; 90714; 99214

== ENCOUNTER 2023-06-24 07:45 | Outpatient (REF) | payer MEDICARE, SELFPAY ==
[2023-06-24 07:54] LABS: MANUAL DIFF FLAG NO
[2023-06-24 08:17] LABS: Basophils Percent Auto 0.5 % (0-2); Eosinophils Absolute Auto 0.2 X10*3/uL (0.0-0.4); Eosinophils Percent Auto 3.2 % (0-4); Hematocrit 41.6 % (42.0-52.0); Imm Gran Abs Auto 0.01 X10*3/uL (0.00-0.03); Imm Gran Pct Auto 0.2 % (0.0-0.4); Lymphocytes Percent Auto 18.1 % (20-40); Mean Corpuscular HGB Conc 33.7 g/dl (31.0-36.0); Mean Corpuscular Volume 89.1 fL (80.0-98.0); Mean Platelet Volume 9.1 fL (9.4-12.4); Monocytes Absolute Auto 0.6 X10*3/uL (0.1-1.2); Monocytes Percent Auto 10.4 % (2-11); Neutrophils Absolute Auto 3.9 x10*3/uL (2.0-8.3); Neutrophils Percent Auto 67.6 % (45-73); Platelet Count 199 X10*3/uL (160-400); Red Blood Count 4.67 X10*6/uL (4.60-5.80); Red Cell Distribution Width 13.2 % (11.0-16.0); White Blood Count 5.7 X10*3/uL (4.8-10.8)
[2023-06-24 08:52] LABS: Alanine Aminotransferase 14 U/L (0-40); Alkaline Phosphatase 80 U/L (39-117); Anion Gap 11 (12-20); Aspartate Amino Transferase 21 U/L (5-37); Bilirubin Total 0.8 mg/dL (0.0-1.0); Blood Urea Nitrogen 10 mg/dL (9-16); Calcium 9.1 mg/dL (8.4-10.2); Carbon Dioxide 28 mmol/L (22-29); Chloride 101 mmol/L (96-108); Cholesterol 216 mg/dL (<200); Estimated Glomerular Filt Rate > 60; Glucose Random 101 mg/dL (60-115); HDL Cholesterol 95 mg/dL (>40); LDL Cholesterol Calculated 110 mg/dL (<100); Potassium 4.4 mmol/L (3.3-5.1); Sodium 136 mmol/L (135-145); Total Protein 7.1 g/dL (6.5-8.0); Triglycerides 58 mg/dL (<150)
[2023-06-24 09:10] LABS: Free T4 (Free Thyroxine) 0.88 ng/dL (0.71-1.85); Thyroid Stimulating Hormone 2.71 uIU/mL (0.32-4.0)
[2023-06-24 09:14] LABS: Folate 7.3 ng/mL (> or = 4.0); Vitamin B12 429 pg/mL (200-900)
== END 2023-06-24 07:46 | disposition home or self-care (01) ==
LOC: HO.LAB 07:45
PROVIDERS: PCP Internal Medicine; Visit Provider Internal Medicine
DX: E78.00 Pure hypercholesterolemia, unspecified (principal)
CPT/HCPCS: 36415; 80053; 80061; 82607; 82746; 84439; 84443; 85025

== ENCOUNTER 2023-10-13 10:39 | Outpatient (AMB) | payer MEDICARE, SELFPAY ==
[2023-10-13 10:50] VITALS: BP 168/92; PULSE 82; O2SAT 98; BMI 27.3
--- NOTE | 2023-10-13 10:50 | MHC.PC.OV ---
Vital Signs 10/13/23 10:50 Height 5 ft 10 in Weight 190 lb BMI 27.3 BP 168/92 H Blood Pressure Location Lt brachial Position Sitting Pulse 82 Pulse Source Pulse Oximeter Pulse Oximetry (%) 98 Oxygen Delivery Method Room Air Intake Visit Reasons: Clearance for dental work Allergies No Known Allergies Allergy (Mild, Verified 10/13/23 10:50) NKA hydrochlorothiazide Allergy (Unknown, Verified 10/13/23 10:50) Alcohol hyponatremia lisinopril Allergy (Unknown, Verified 10/13/23 10:50) hyperkalemia Medication List - Last Reconciled 10/13/23 by Dori Casillas MD amlodipine 10 mg PO DAILY 30 days hydrocortisone 1% 1 appl topical BID metoprolol succinate ER 100 mg PO DAILY mupirocin 2% 1 appl topical BID Tobacco use date assessed: 10/13/23 Fall risk assessment: No Falls in past year Last assessed Fall Risk: 10/13/23 Dental Screening Dental Screen Date: 10/13/23 Did you have a dental visit in the last 12 months?: Yes Did you have a dental problem in the last 6 months where you did not have access to dental care?: No Was dental information given to patient?: Patient has dentist HPI Clearance for dental work HPI Details 78-year-old overweight male with hypertension hypercholesterolemia chronic kidney disease coming in for preoperative evaluation for dental procedure. Last seen in March 2023.pulling 2 teeth PFSH Medical History (Updated 10/13/23 @ 11:07 by Dori Casillas MD) Vertebral artery stenosis Stenosis of left vertebral artery Carotid aneurysm, left Alcohol abuse Hemorrhoids with complication Vitamin D deficiency History of hemorrhoids Hypercholesterolemia Left renal stone Solitary kidney Anemia Hypertension Surgical History H/O inguinal hernia repair H/O lithotripsy History of umbilical hernia repair History of tonsillectomy Social History (Updated 10/13/23 @ 11:16 by Dori Casillas MD) Housing: House Alcohol intake: current Alcohol intake frequency: 3 or more drinks per day Alcohol type: beer Comment: QD beer 3-4 beers Patient Tobacco Use Status: Never used Tobacco Years Smoked: stopped 1990 hx of pack a day e-Cigarette/Vaping Use: Never Used Second Hand Smoke Exposure: No service: Yes Current occupational status: employed Cognitive needs: No Hearing needs: No Vision needs: Yes Questionnaire PHQ-9 Over the last 2 weeks, how often have you been bothered by any of the following problems? 1. Little interest or pleasure in doing things: not at all 2. Feeling down, depressed, or hopeless: not at all 3. Trouble falling or staying asleep, or sleeping too much: not at all 4. Feeling tired or having little energy: not at all 5. Poor appetite or overeating: not at all 6. Feeling bad about yourself - or that you are a failure or have let yourself or your family down: not at all 7. Trouble concentrating on things, such as reading the newspaper or watching television: not at all 8. Moving or speaking so slowly that other people could have noticed. Or the opposite - being so fidgety or restless that you have been moving around a lot more than usual: not at all 9. Thoughts that you would be better off or of hurting yourself in some way: not at all Total score: 0 Depression Screening Interpretation: Negative Depression Screening Done: Yes Source: Developed by Drs. Chaparro Sheppard, Evelyn Del Rosario, Segundo Mckeon and colleagues, with an educational maria del rosario from [employer]. Thrive Questionnaire Date Thrive assessed: 10/13/23 I am a: Patient What is your living situation today?: I have a steady place to live Within the past 12 months, did the food you bought not last and you didn't have the money to get more?: Never true Within the past 12 months, did you worry whether your food would run out before you got money to buy more?: Never true Do you have trouble paying for medicines?: No Do you have trouble getting transportation to medical appointments?: No Do you have trouble paying your heating and electricity bill?: No Do you have trouble taking care of your child, family member or friend?: No Do you have trouble with day-to-day activities such as bathing, preparing meals, shopping, managing finances, etc.?: No Are you currently unemployed and looking for a job?: No Are you interested in more education?: No Currently or been in a relationship where the following occur: no concerns reported THRIVE Score: 0 AUDIT C Alcohol Use Questionnaire (AUDIT-C) 1. How often do you have a drink containing alcohol?: Monthly or less 2. How many drinks containing alcohol do you have on a typical day when you are drinking?: 1 or 2 3. How often do you have six or more drinks on one occasion?: Never Total Score: 1 MELANIE-7 AMB Questionnaire MELANIE-7 Date MELANIE - 7 assessed: 10/13/23 Feeling nervous, anxious, or on edge: 0 = Not at all Not being able to stop or control worryin = Not at all Worrying too much about different things: 0 = Not at all Trouble relaxin = Not at all Being so restless that it is hard to sit still: 0 = Not at all Becoming easily annoyed or irritable: 0 = Not at all Feeling afraid as if something awful might happen: 0 = Not at all Total MELANIE-7 score (0-4 normal; 5-9 mild; 10-14 moderate; 15-21 severe): 0 Source: Developed by Drs. Chaparro Sheppard, Evelyn Del Rosario, Segundo Mckeon and colleagues, with an educational maria del rosario from [employer]. Review of Systems Const Denies poor appetite and Denies weakness Eyes Denies no additional complaints ENT Reports Normal hearing present, Denies dizziness, Denies nasal congestion, Denies tinnitus and Denies sore throat Card Denies chest pain, Denies syncope, Denies rapid heart rate and Denies dyspnea Resp Denies cough and Denies dyspnea GI Denies change in stool character, Reports constipation, Denies diarrhea, Denies nausea and Denies vomiting Denies dysuria and Denies urinary frequency Neuro Reports Normal hearing present, Denies confusion, Denies dizziness, Denies syncope and Denies weakness Psych Denies confusion Physical exam (Primary Care) Vital Signs: Last Vital Signs Pulse 82 10/13/23 10:50 BP 168/92 H 10/13/23 10:50 Pulse Ox 98 10/13/23 10:50 Oxygen Delivery Method Room Air 10/13/23 10:50 BMI result Body Mass Index 27.3 Tobacco/Smoking Status: Tobacco use Status Tobacco use date assessed 10/13/23 10/13/23 10:53 Patient Tobacco Use Status Never used Tobacco 10/13/23 10:53 e-Cigarette/Vaping Use Never Used 10/13/23 10:53 PHQ-9: PHQ-9 Score PHQ-9: Total score 0 10/13/23 10:53 Depression Screening Interpretation: Negative Thrive Assessment: Date of Thrive Assessment Date Thrive assessed 10/13/23 10/13/23 10:53 Currently or been in a relationship where the following occur: no concerns reported Const General: No confusion Orientation/consciousness: No confusion Eyes Conjunctivae: conjunctivae normal Resp Auscultation: clear to auscultation bilaterally Cardio Rate: regular rate Rhythm: regular rhythm GI Inspection: Yes normal to inspection Neuro General: No confusion Cranial nerves: Yes Normal hearing present Extrem General: Yes normal to inspection and No edema Assessment and Plan Assessment & Plan (1) Preop exam for internal medicine: Code(s): Z01.818 - Encounter for other preprocedural examination Plan: Came in to get the blood pressure under control. Patient presently on metoprolol 100 mg once a day and amlodipine 5 mg once a day. Will increase the amlodipine to 10 mg once a day and will follow up on the blood pressure. (2) Hypertension: Code(s): I10 - Essential (primary) hypertension Plan: Continue with blood pressure medication. Decrease salt intake and exercise presently on metoprolol 100 mg once a day and amlodipine 5 mg once a day. With the blood pressure high increase amlodipine to 10 mg once a day. (3) Hypercholesterolemia: Code(s): E78.00 - Pure hypercholesterolemia, unspecified Plan: Avoid fried foods, chicken skin, eggs, butter margarine, pastries and meat. Be it pork or beef they have a lot of cholesterol recent blood work within normal limits. (4) Chronic kidney disease: Comment: Stage II, hypertrophic left kidney/obstructive uropathy Code(s): N18.9 - Chronic kidney disease, unspecified Plan: Keep well hydrated Medications: Changed From amlodipine 5 mg PO DAILY 90 tabs 0RF I10 - Essential (primary) hypertension To amlodipine 10 mg PO DAILY 30 days 30 tabs 3RF I10 - Essential (primary) hypertension Coding Level of Care Code Est Pt Level 4 (60538) Diagnoses Preop exam for internal medicine Z01.818 Hypertension I10 Hypercholesterolemia E78.00 Chronic kidney disease N18.9
== END 2023-10-13 11:26 | disposition home or self-care (01) ==
PROVIDERS: PCP Internal Medicine; Visit Provider Internal Medicine
DX: Z01.818 Encounter for other preprocedural examination (principal); I12.9 Hypertensive chronic kidney disease with stage 1 through stage 4 chronic kidney disease, or unspecified chronic kidney disease; E78.00 Pure hypercholesterolemia, unspecified; N18.9 Chronic kidney disease, unspecified
CPT/HCPCS: 99214

== ENCOUNTER 2023-11-08 12:49 | Outpatient (AMB) | payer MEDICARE, SELFPAY ==
[2023-11-08 12:54] VITALS: BP 86/58; PULSE 58; O2SAT 92; BMI 26.8
--- NOTE | 2023-11-08 12:54 | A.OFFPC_ITS ---
Vital Signs 11/08/23 12:54 Height 5 ft 10 in Weight 187 lb BMI 26.8 BP 86/58 L Blood Pressure Location Lt brachial Position Sitting Pulse 58 Pulse Source Pulse Oximeter Pulse Oximetry (%) 92 Oxygen Delivery Method Room Air Intake Visit Reasons: 1month f/u Intake Note: Patient is here to follow up Hand Buffing Wheel Former Required: No Allergies No Known Allergies Allergy (Mild, Verified 11/08/23 12:54) NKA hydrochlorothiazide Allergy (Unknown, Verified 11/08/23 12:54) Alcohol hyponatremia lisinopril Allergy (Unknown, Verified 11/08/23 12:54) hyperkalemia Tobacco use date assessed: 11/08/23 Fall risk assessment: No Falls in past year Last assessed Fall Risk: 11/08/23 Dental Screening Dental Screen Date: 10/13/23 HPI 1month f/u 2 HPI Details 78-year-old overweight male with a histo ry of hypertension hypercholesterolemia chronic kidney disease last seen in September for preoperative evaluation the blood pressure was very high. Amlodipine prescription changed from 5 mg to 10 mg with metoprolol succinate 100 mg once a day and is here for follow-up. Patient is supposed to have a dental procedure. Patient had a dental procedure yesterday and was prescribed Tylenol and amoxicillin.. Patient went with his usual walk today to the mall and in the mall after a few walks suddenly felt diaphoretic and stopped and since he has a schedule came to the clinic. Patient felt tired since not sleeping well the night before but denies any chest pains. Denies any shortness a breath. In the clinic noted to have hypotension 86 over 58 PFSH Medical History (Updated 11/08/23 @ 13:36 by Dori Casillas MD) Vertebral artery stenosis Stenosis of left vertebral artery Carotid aneurysm, left Alcohol abuse Hemorrhoids with complication Vitamin D deficiency History of hemorrhoids Hypercholesterolemia Left renal stone Solitary kidney Anemia Hypertension Surgical History H/O inguinal hernia repair H/O lithotripsy History of umbilical hernia repair History of tonsillectomy Social History (Updated 10/13/23 @ 11:16 by Dori Casillas MD) Housing: House Alcohol intake: current Alcohol intake frequency: 3 or more drinks per day Alcohol type: beer Comment: QD beer 3-4 beers Patient Tobacco Use Status: Never used Tobacco Years Smoked: stopped 1990 hx of pack a day e-Cigarette/Vaping Use: Never Used Second Hand Smoke Exposure: No service: Yes Current occupational status: employed Cognitive needs: No Hearing needs: No Vision needs: Yes Questionnaire Thrive Questionnaire Date Thrive assessed: 11/08/23 I am a: Patient What is your living situation today?: I have a steady place to live Within the past 12 months, did the food you bought not last and you didn't have the money to get more?: Never true Within the past 12 months, did you worry whether your food would run out before you got money to buy more?: Never true Do you have trouble paying for medicines?: No Do you have trouble getting transportation to medical appointments?: No Do you have trouble paying your heating and electricity bill?: No Do you have trouble taking care of your child, family member or friend?: No Do you have trouble with day-to-day activities such as bathing, preparing meals, shopping, managing finances, etc.?: No Are you currently unemployed and looking for a job?: No Are you interested in more education?: No Currently or been in a relationship where the following occur: no concerns reported THRIVE Score: 0 AUDIT C Alcohol Use Questionnaire (AUDIT-C) 1. How often do you have a drink containing alcohol?: Monthly or less 2. How many drinks containing alcohol do you have on a typical day when you are drinking?: 1 or 2 3. How often do you have six or more drinks on one occasion?: Never Total Score: 1 MELANIE-7 AMB Questionnaire MELANIE-7 Date MELANIE - 7 assessed: 10/13/23 Source: Developed by Drs. Chaparro Sheppard, Evelyn Del Rosario, Segundo Mckeon and colleagues, with an educational maria del rosario from [employer]. Physical exam (Primary Care) Vital Signs: Last Vital Signs Pulse 58 11/08/23 12:54 BP 86/58 L 11/08/23 12:54 Pulse Ox 92 11/08/23 12:54 Oxygen Delivery Method Room Air 11/08/23 12:54 BMI result Body Mass Index 26.8 Tobacco/Smoking Status: Tobacco use Status Tobacco use date assessed 11/08/23 11/08/23 12:55 Patient Tobacco Use Status Never used Tobacco 11/08/23 12:55 e-Cigarette/Vaping Use Never Used 11/08/23 12:55 Thrive Assessment: Date of Thrive Assessment Date Thrive assessed 11/08/23 11/08/23 12:55 Currently or been in a relationship where the following occur: no concerns reported Const General: alert; No acute distress Eyes Conjunctivae: conjunctivae normal Resp Auscultation: clear to auscultation bilaterally Cardio Rate: regular rate Rhythm: regular rhythm GI Inspection: Yes normal to inspection Extrem General: Yes normal to inspection and No edema Assessment and Plan Assessment & Plan (1) Hypertension: Code(s): I10 - Essential (primary) hypertension Plan: Continue with blood pressure medication. Decrease salt intake and exercise patient presently on metoprolol 100 mg once a day amlodipine 10 mg once a day. Hyperkalemia problem with lisinopril and hyponatremia with hydrochlorothiazide. (2) Hypercholesterolemia: Code(s): E78.00 - Pure hypercholesterolemia, unspecified Plan: Avoid fried foods, chicken skin, eggs, butter margarine, pastries and meat. Be it pork or beef they have a lot of cholesterol (3) Chronic kidney disease: Comment: Stage II, hypertrophic left kidney/obstructive uropathy Code(s): N18.9 - Chronic kidney disease, unspecified Plan: Keep well hydrated avoid NSAIDs. (4) Hypotension: Code(s): I95.9 - Hypotension, unspecified (5) Diaphoresis: Code(s): R61 - Generalized hyperhidrosis Plan: Advised to hold blood pressure medication EKG requested O2 sats 94 with pulse of 64 EKG Sinus Bradycardia 59, ? Q wave III and avf new - inferior infarct? will do work up since patient is asymptomatic- referral to cardiology Orders: Orders Complete Blood Count Auto Diff Today I95.9 - Hypotension, unspecified Comprehensive Met. Panel Today I95.9 - Hypotension, unspecified Magnesium Today I95.9 - Hypotension, unspecified Troponin-I High Sensitivity Today I95.9 - Hypotension, unspecified CA echo transthoracic complete Today I95.9 - Hypotension, unspecified AMB EKG-In Office Today I95.9 - Hypotension, unspecified Creatine Kinase Total Today I95.9 - Hypotension, unspecified Referrals Cardiology Referral I95.9 - Hypotension, unspecified Medications: Changed From amlodipine 10 mg PO DAILY 30 days 30 tabs 3RF I10 - Essential (primary) hypertension To amlodipine 5 mg PO DAILY 30 days 30 tabs 3RF I10 - Essential (primary) hypertension Coding Level of Care Code Est Pt Level 4 (98096) Diagnoses Hypertension I10 Hypercholesterolemia E78.00 Chronic kidney disease N18.9 Hypotension I95.9 Diaphoresis R61
== END 2023-11-08 13:55 | disposition home or self-care (01) ==
PROVIDERS: PCP Internal Medicine; Visit Provider Internal Medicine
DX: I12.9 Hypertensive chronic kidney disease with stage 1 through stage 4 chronic kidney disease, or unspecified chronic kidney disease (principal); E78.00 Pure hypercholesterolemia, unspecified; N18.9 Chronic kidney disease, unspecified; I95.9 Hypotension, unspecified; R61 Generalized hyperhidrosis
CPT/HCPCS: 99214

== ENCOUNTER 2023-11-08 14:03 | Outpatient (REF) | payer MEDICARE, SELFPAY ==
[2023-11-08 14:48] LABS: Basophils Absolute Auto 0.1 X10*3/uL (0.0-0.2); Basophils Percent Auto 0.9 % (0-2); Eosinophils Absolute Auto 0.1 X10*3/uL (0.0-0.4); Hematocrit 40.6 % (42.0-52.0); Hemoglobin 14.1 g/dl (14.0-18.0); Imm Gran Abs Auto 0.13 X10*3/uL (0.00-0.03); Imm Gran Pct Auto 1.5 % (0.0-0.4); Lymphocytes Absolute Auto 0.8 X10*3/uL (1.2-4.9); Lymphocytes Percent Auto 9.8 % (20-40); MANUAL DIFF FLAG SCAN; Mean Corpuscular HGB Conc 34.7 g/dl (31.0-36.0); Mean Corpuscular Hemoglobin 30.5 pg (27.0-33.0); Mean Corpuscular Volume 87.9 fL (80.0-98.0); Mean Platelet Volume 10.8 fL (9.4-12.4); Monocytes Absolute Auto 0.8 X10*3/uL (0.1-1.2); Monocytes Percent Auto 9.4 % (2-11); Neutrophils Absolute Auto 6.7 x10*3/uL (2.0-8.3); Neutrophils Percent Auto 77.4 % (45-73); PLT CLUMP 1; Red Blood Count 4.62 X10*6/uL (4.60-5.80); Red Cell Distribution Width 13.4 % (11.0-16.0); SCAN SMEAR FLAG 1
[2023-11-08 15:17] LABS: Platelet Count 186 X10*3/uL (160-400); SLIDE REVIEW VERIFIED; Troponin-I High Sensitivity < 2.7 ng/L (<3.5-35.0); White Blood Count 8.6 X10*3/uL (4.8-10.8)
[2023-11-08 20:11] LABS: Alanine Aminotransferase 14 U/L (0-40); Alkaline Phosphatase 71 U/L (39-117); Anion Gap 15 (12-20); Aspartate Amino Transferase 19 U/L (5-37); Bilirubin Total 0.5 mg/dL (0.0-1.0); Blood Urea Nitrogen 12 mg/dL (9-16); Calcium 9.1 mg/dL (8.4-10.2); Carbon Dioxide 24 mmol/L (22-29); Chloride 98 mmol/L (96-108); Estimated Glomerular Filt Rate > 60; Glucose Random 82 mg/dL (60-115); Magnesium 2.1 mg/dL (1.6-2.6); Potassium 4.3 mmol/L (3.3-5.1); Sodium 133 mmol/L (135-145); Total Protein 6.9 g/dL (6.5-8.0)
== END 2023-11-08 14:04 | disposition home or self-care (01) ==
LOC: HO.LAB 14:03
PROVIDERS: PCP Internal Medicine; Visit Provider Internal Medicine
DX: I95.9 Hypotension, unspecified (principal)
CPT/HCPCS: 36415; 80053; 82550; 83735; 84484; 85025

== ENCOUNTER 2023-11-22 14:49 | Outpatient (AMB) | payer MEDICARE, SELFPAY ==
--- NOTE | 2023-11-22 15:24 | A.OFFVIS_ITS ---
Intake Visit Reasons: solitary kidney Allergies No Known Allergies Allergy (Mild, Verified 11/08/23 12:54) NKA hydrochlorothiazide Allergy (Unknown, Verified 11/08/23 12:54) Alcohol hyponatremia lisinopril Allergy (Unknown, Verified 11/08/23 12:54) hyperkalemia HPI Comments Details: Leo is a pleasant male. He is a patient of Dr. Casillas. He is seen for the following urologic conditions. - solitary kidney Refer for solitary kidney Creatinine 1.03 Reassurance provided [facility] Medical History (Updated 11/22/23 @ 15:52 by Alber Vasquez MD) Vertebral artery stenosis Stenosis of left vertebral artery Carotid aneurysm, left Alcohol abuse Hemorrhoids with complication Vitamin D deficiency History of hemorrhoids Hypercholesterolemia Left renal stone Solitary kidney Anemia Hypertension Surgical History H/O inguinal hernia repair H/O lithotripsy History of umbilical hernia repair History of tonsillectomy Social History (Updated 10/13/23 @ 11:16 by Dori Casillas MD) Housing: House Alcohol intake: current Alcohol intake frequency: 3 or more drinks per day Alcohol type: beer Comment: QD beer 3-4 beers Patient Tobacco Use Status: Never used Tobacco Years Smoked: stopped 1990 hx of pack a day e-Cigarette/Vaping Use: Never Used Second Hand Smoke Exposure: No service: Yes Current occupational status: employed Cognitive needs: No Hearing needs: No Vision needs: Yes Review of Systems Const Denies chills and Denies fever(s) Card Reports no additional complaints and Denies syncope Resp Denies cough GI Denies abdominal pain and Denies heartburn Reports as per HPI and Denies change in libido Neuro Denies syncope Psych Denies change in libido Endo Denies change in libido Physical Exam Const General: cooperative, healthy appearing, comfortable and no acute distress Orientation/consciousness: patient oriented x3 HEENT Face and sinus: Yes normal facial exam Mouth: moist mucous membranes Neck Neck: Yes normal visual inspection, Yes full ROM and Yes trachea midline Chest Chest palpation & inspection: normal inspection of the chest Resp Effort & Inspection: normal respiratory effort, able to speak in complete sentences and no respiratory distress GI Inspection: Yes normal to inspection Back/Spine/Pelvis Cervical Spine: normal cervical lordosis Thoracic/Lumbar Spine: thoracic and lumbar spine normal to inspection Skin General skin exam: no rashes or lesions noted Neuro General: patient oriented x3, gait normal, tone normal and moves all extremities Extrem General: Yes normal to inspection and Yes capillary refill normal Assessment & Plan Assessment & Plan (1) Hydronephrosis: Code(s): N13.30 - Unspecified hydronephrosis Category: Medical Plan Twelve month follow-up ultrasound Orders: Orders US renal BI 12 Months N13.30 - Unspecified hydronephrosis Patient Instructions: Imaging studies, laboratory and physical exam results were discussed and reviewed in detail. No major barriers to patient understanding were identified. An opportunity to ask questions regarding the treatment plan was provided. All questions were answered. The patient expressed understanding and agreement with the above treatment plan. The patient is aware they should contact our office by phone for worsening of their current condition or the appearance of new urologic symptoms. Compliance is encouraged with any medications and followup testing that is ordered. It is a privilege to participate in the urologic care of your patient. If you have any questions or concerns regarding treatment for the above conditions, or other urologic issues, please do not hesitate to contact me. The office telephone contact is [phone]. This note is constructed using voice recognition software. While every effort has been made to ensure accuracy apprentice stylist errors may have been included. Yours sincerely, Dr Alber Vasquez MD, [facility] - Urology Providers of Expert, Compassionate Care for the Genitourinary System Coding Level of Care Code New Pt Level 3 (50136) Diagnoses Hydronephrosis N13.30
== END 2023-11-22 15:58 | disposition home or self-care (01) ==
PROVIDERS: PCP Internal Medicine; Visit Provider Urology
DX: N13.30 Unspecified hydronephrosis (principal)
CPT/HCPCS: 99203

== ENCOUNTER → 2023-11-22 14:49 | Outpatient (BNVA) | payer MEDICARE, SELFPAY | PROVIDERS: PCP Internal Medicine; Visit Provider Urology | DX: N13.30 Unspecified hydronephrosis (principal); Q60.0 Renal agenesis, unilateral | CPT/HCPCS: 99202 ==

== ENCOUNTER → 2023-12-12 10:33 | Outpatient (REF) | payer MEDICARE, SELFPAY ==
--- NOTE | 2023-12-12 10:35 | CA_ITS ---
Transthoracic Echocardiogram Patient (Last, First, Middle): Leo Bartlett L Gender: Male Date of : 1945 Age: 78 Procedure Date: 12/12/2023 Procedure Type: Transthoracic Echocardiogram Location: OP Height: 177.8 cm Weight: 83.92 kg BSA: 2.02 m2 Heart Rate: bpm BP: 120 / 80 mmHg Principal Research Economist: RAJANI Referring MD: Dori Casillas MD Symptoms: I95.9 - Hypotension, unspecified Study Quality: Fair/Contrast ECG Rhythm: Sinus Conclusions: - The left ventricular systolic function is normal. The visually estimated ejection fraction is between 60-65%. - No obvious valvular pathology seen on this study. Findings Procedure Information Contrast agent, definity, is being given per protocol without apparent complications. Left Ventricle Normal left ventricular cavity size. There is mildly increased left ventricular wall thickness. The left ventricular systolic function is normal. The visually estimated ejection fraction is between 60-65%. There is no evidence of regional wall motion abnormalities. Evidence suggests grade I (mild) diastolic dysfunction. Focal hypertrophy of the basal septum. Right Ventricle Normal right ventricular cavity size and systolic function. Atria The left atrium is mildly dilated. The right atrium is normal in size. Aortic Valve There is a normal trileaflet aortic valve. There is mild calcification of the aortic valve. There is no aortic valve stenosis. There is trace (trivial) aortic valve regurgitation. Mitral Valve The mitral valve appears normal. There is trace mitral valve regurgitation. There is no mitral valve stenosis. Pulmonic Valve The pulmonic valve is likely normal. Tricuspid Valve Normal tricuspid valve structure. There is trace tricuspid valve regurgitation. There is no evidence of pulmonary hypertension. Great Vessels The asc aorta and aortic arch are normal in size. Venous The inferior vena cava is normal in size and collapses greater than 50% with inspiration. Pericardium/Pleural There is no evidence of pericardial effusion. Prior Study Comparison (unable to retrieve old report). Recommendations, Care & Conclusions No obvious valvular pathology seen on this study. Measurements 2D Linear Measurements IVSd: 1.36 0.6-0.9/0.6-1.0 cm LVIDd: 4.17 3.9-5.3/4.2-5.9 cm LVIDd Index: 2.06 2.4-3.2/2.2-3.1 cm/m2 LVIDs: 2.89 2.0-3.6 cm LVPWd: 1.14 0.7-1.1 cm Ao Root: 3.80 2.1-3.5 cm LA Diam: 3.40 2.7-3.8/3.0-4.0 cm LAIDs Index: 1.68 1.5-2.3 cm/m2 LV Mass: 233.20 67-162/88-224 g LV Mass Index: 115.44 43-95/49-115 g/m2 LVOT Diam: 2.10 3.0+(-)1.3 cm 2D Systolic Function EF 4C: 60.80 >55% EF 2C: 72.20 >55% EF BiP: 65.90 >55% Mitral Valve MV Pk E: 0.53 MV PK A: 0.80 MV Decel Time: 298.00 E/A: 0.70 E'Lateral: 5.87 E'Medial: 5.55 E/E' Med: 9.50 E/E' Lat: 9.00 PHT: 87.00 MVA PHT: 2.53 Decel [place]: 1.76 Aortic Valve AoV Pk Ridge: 1.29 AoV Mn Ridge: 0.81 AoV VTI: 0.27 AoV Pk Grad: 7.00 Aov Mn Grad: 3.00 HERBERT Cont.VTI: 2.62 LVOT LVOT Pk Ridge: 0.86 LVOT Mn Ridge: 0.57 LVOT VTI: 0.20 LVOT Pk Grad: 3.00 LVOT Mn Grad: 2.00 LVOT Diam: 2.10 LVOT Area: 3.46 Diastolic Function MV Pk E: 0.53 MV Pk A: 0.80 E/A: 0.70 E'Medial: 5.55 E/E' Med: 9.50 E' Laterial: 5.87 E/E' Lat: 9.00 Right Ventricle TAPSE (mm): 16.00 TVS' Ridge: 13.70 Tricuspid Valve TR Pk Ridge: 2.00 TR Pk Grad: 16.00 RA Press: 3.00 RVSP: 19.00 Great Vessels Aorta Ao Root-2D: 3.80 2.0-3.7 cm Ao Asc: 3.80 2.1-3.4 cm Ao Arch: 2.70 Updated in Other Vendor System with Status of Final Christiano Adams MD electronically signed on 12/12/2023 1:34:36 PM with status of Final
== END ==
LOC: HO.CARD 10:33
PROVIDERS: PCP Internal Medicine; Visit Provider Internal Medicine
DX: I95.9 Hypotension, unspecified (principal)
CPT/HCPCS: 93306; Q9957

== ENCOUNTER → 2023-12-12 10:35 | Outpatient (BNV) | payer MEDICARE, SELFPAY | PROVIDERS: PCP Internal Medicine; Visit Provider Internal Medicine | DX: I35.8 Other nonrheumatic aortic valve disorders (principal); I42.2 Other hypertrophic cardiomyopathy | CPT/HCPCS: 93306 ==

== ENCOUNTER 2024-01-13 12:32 | Outpatient (AMB) | payer MEDICARE, SELFPAY ==
--- NOTE | 2024-01-13 12:40 | MHC.PC.OV ---
Vital Signs 01/13/24 12:43 01/13/24 13:42 Height 5 ft 10 in Weight 188 lb 0.1 oz BMI 27.0 BP 160/92 H 130/70 Blood Pressure Location Lt brachial Lt brachial Position Sitting Sitting Pulse 73 Pulse Source Pulse Oximeter Pulse Oximetry (%) 98 Oxygen Delivery Method Room Air Intake Visit Reasons: hypotenstion Corking Machine Operator Required: No Allergies No Known Allergies Allergy (Mild, Verified 01/13/24 13:04) NKA hydrochlorothiazide Allergy (Unknown, Verified 01/13/24 13:04) Alcohol hyponatremia lisinopril Allergy (Unknown, Verified 01/13/24 13:04) hyperkalemia Tobacco use date assessed: 11/08/23 Fall risk assessment: No Falls in past year Last assessed Fall Risk: 01/13/24 Dental Screening Dental Screen Date: 10/13/23 HPI hypotenstion HPI Details 78-year-old overweight male with hypertension, hypercholesterolemia chronic kidney disease coming in for follow-up. Last seen in Nov 08 2023. Echocardiogram done 12/12/2023The left ventricular systolic function is normal. The visually estimated ejection fraction is between 60-65%. - No obvious valvular pathology seen on this study. Patient also follows up with the urologist for solitary kidney and was reassured [facility] Medical History (Updated 01/13/24 @ 13:39 by Dori Casillas MD) Vertebral artery stenosis Stenosis of left vertebral artery Carotid aneurysm, left Alcohol abuse Hemorrhoids with complication Vitamin D deficiency History of hemorrhoids Hypercholesterolemia Left renal stone Solitary kidney Anemia Hypertension Surgical History (Reviewed 12/30/22 @ 14:10 by Ale Sanon [facility]) H/O inguinal hernia repair H/O lithotripsy History of umbilical hernia repair History of tonsillectomy Social History (Updated 10/13/23 @ 11:16 by Dori Casillas MD) Housing: House Alcohol intake: current Alcohol intake frequency: 3 or more drinks per day Alcohol type: beer Comment: QD beer 3-4 beers Patient Tobacco Use Status: Never used Tobacco Years Smoked: stopped 1990 hx of pack a day e-Cigarette/Vaping Use: Never Used Second Hand Smoke Exposure: No service: Yes Current occupational status: employed Cognitive needs: No Hearing needs: No Vision needs: Yes Questionnaire Thrive Questionnaire Date Thrive assessed: 11/08/23 AUDIT C Alcohol Use Questionnaire (AUDIT-C) 1. How often do you have a drink containing alcohol?: Monthly or less 2. How many drinks containing alcohol do you have on a typical day when you are drinking?: 1 or 2 3. How often do you have six or more drinks on one occasion?: Never Total Score: 1 MELANIE-7 AMB Questionnaire MELANIE-7 Date MELANIE - 7 assessed: 10/13/23 Source: Developed by Drs. Chaparro Sheppard, Evelyn Del Rosario, Segundo Mckeon and colleagues, with an educational maria del rosario from [employer]. Physical exam (Primary Care) Vital Signs: Last Vital Signs Pulse 73 01/13/24 12:43 BP 160/92 H 01/13/24 12:43 Pulse Ox 98 01/13/24 12:43 Oxygen Delivery Method Room Air 01/13/24 12:43 BMI result Body Mass Index 27.0 Tobacco/Smoking Status: Tobacco use Status Tobacco use date assessed 11/08/23 01/13/24 12:40 Patient Tobacco Use Status Never used Tobacco 01/13/24 12:40 e-Cigarette/Vaping Use Never Used 01/13/24 12:40 Thrive Assessment: Date of Thrive Assessment Date Thrive assessed 11/08/23 01/13/24 12:40 Const General: alert; No acute distress Eyes Conjunctivae: conjunctivae normal Resp Auscultation: clear to auscultation bilaterally Cardio Rate: regular rate Rhythm: regular rhythm GI Inspection: Yes normal to inspection Extrem General: Yes normal to inspection and No edema Assessment and Plan Assessment & Plan (1) Hypertension: Code(s): I10 - Essential (primary) hypertension Plan: Continue with blood pressure medication. Decrease salt intake and exercise amlodipine 5 mg once a day metoprolol 100 mg once a day (2) Hypercholesterolemia: Code(s): E78.00 - Pure hypercholesterolemia, unspecified Plan: Avoid fried foods, chicken skin, eggs, butter margarine, pastries and meat. Be it pork or beef they have a lot of cholesterol (3) Chronic kidney disease: Comment: Stage II, hypertrophic left kidney/obstructive uropathy Code(s): N18.9 - Chronic kidney disease, unspecified Plan: Keep well hydrated avoid NSAIDs and will continue to monitor the kidney function (4) Overweight (BMI 25.0-29.9): Code(s): E66.3 - Overweight Plan: Diet and exercise Coding Level of Care Code Est Pt Level 4 (30350) Diagnoses Hypertension I10 Hypercholesterolemia E78.00 Chronic kidney disease N18.9 Overweight (BMI 25.0-29.9) E66.3
[2024-01-13 12:43] VITALS: BP 160/92; PULSE 73; O2SAT 98; BMI 27.0
[2024-01-13 13:42] VITALS: BP 130/70
== END 2024-01-13 13:50 | disposition home or self-care (01) ==
PROVIDERS: PCP Internal Medicine; Visit Provider Internal Medicine
DX: I12.9 Hypertensive chronic kidney disease with stage 1 through stage 4 chronic kidney disease, or unspecified chronic kidney disease (principal); E78.00 Pure hypercholesterolemia, unspecified; N18.9 Chronic kidney disease, unspecified; E66.3 Overweight
CPT/HCPCS: 99214

== ENCOUNTER 2024-07-13 08:46 | Outpatient (AMB) | payer MEDICARE, SELFPAY ==
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
[2024-07-13 09:05] VITALS: BP 130/80; PULSE 79; TEMP 36.2; O2SAT 98; BMI 26.8
== END 2024-07-13 09:48 | disposition home or self-care (01) ==
PROVIDERS: PCP Internal Medicine; Visit Provider Internal Medicine
DX: Z00.00 Encounter for general adult medical examination without abnormal findings (principal); I12.9 Hypertensive chronic kidney disease with stage 1 through stage 4 chronic kidney disease, or unspecified chronic kidney disease; E78.00 Pure hypercholesterolemia, unspecified; N18.9 Chronic kidney disease, unspecified; E66.3 Overweight

== ENCOUNTER → 2024-07-13 08:46 | Outpatient (BNVA) | payer MEDICARE, SELFPAY | PROVIDERS: PCP Internal Medicine; Visit Provider Internal Medicine | DX: Z00.00 Encounter for general adult medical examination without abnormal findings (principal); E78.00 Pure hypercholesterolemia, unspecified; E66.3 Overweight; I12.9 Hypertensive chronic kidney disease with stage 1 through stage 4 chronic kidney disease, or unspecified chronic kidney disease; N18.9 Chronic kidney disease, unspecified | CPT/HCPCS: 99387 ==

== ENCOUNTER 2024-11-07 08:43 | Outpatient (REF) | payer MEDICARE, SELFPAY ==
--- NOTE | ~2024-11-07 | US_ITS ---
EXAMINATION: US KIDNEY BILATERAL HISTORY: N13.30 - Unspecified hydronephrosis TECHNIQUE: Real-time grayscale ultrasound imaging of the kidneys was performed and images were reviewed. COMPARISON: Comparison is made with the prior examination dated 03/28/2019. FINDINGS: Right kidney: The right kidney measures 12.7 x 6.1 x 5.8 cm. Renal parenchymal echotexture and thickness are normal. There are no masses. There is no hydronephrosis or renal calculi. Left Kidney: The left kidney measures 10.9 x 3.9 x 3.5 cm. Again seen is renal cortical thinning. Again seen is severe hydronephrosis. There is a 4 mm calcification at the lower pole which may represent a calculus or wall calcification. US/US renal BI IMPRESSION: Severe left hydronephrosis with associated cortical thinning without change. The right kidney is unremarkable. Electronically signed by: Chaparro Mcdermott MD 11/07/2024 09:57 AM EDT
--- OUTSIDE RECORDS SUMMARY | 2024-11-07 08:59 | XMS_ITS | Encounter Summary ---
Author Organization [facility] Address [address] [facility] [address] [place] [address] Phone Care Team Providers Care Telegraphic Typewriter Repairer Name Role Phone Dori Casillas MD Primary Care Provider [phone] Reason for Visit * Reason Comments Med Refill Encounter Details Date Type Department Care Team (Late st Contact Info) Description 11/15/2023 Refill [facility] [address] [facility] [address] [place] [phone] Nik Rahman MD [address] [facility] [address] [place] [phone] Social History Tobacco Use Types Packs/Day Years Used Date Smoking Tobacco: Former Smokeless Tobacco: Never Alcohol Use Standard Drinks/Week Comments Yes 0 (1 standard drink = 0.6 oz pure alcohol) Alcoholic Drinks/day: 3 or more drinks per day Sex and Gender Information Value Date Recorded Sex Assigned at Not on file Legal Sex Male 4:48 PM EST Gender Identity Not on file Sexual Orientation Not on file documented as of this encounter Plan of Treatment Not on file documented as of this encounter Visit Diagnoses Not on filedocumented in this encounter Care Teams Telegraphic Typewriter Repairer Relationship Specialty Start Date End Date Dori Casillas MD [address] [place], [place] PCP - General 07/07/20 documented as of this encounter
--- OUTSIDE RECORDS SUMMARY | 2024-11-07 08:59 | XMS_ITS | Patient Health Record ---
Author Organization [facility] kaylee [place] Address [address] [place] [address] Care Team Providers Care Bridge Manager Name Role Phone Dori Casillas Primary Care Provider Unavailabl e Black, Judit Unavailable [phone] Allergies No Known Allergies Reason For Referral No Information Medications Medication SIG (Take, Route, Frequency, Duration) Notes Start Date End Date Status Metoprolol Succinate 100 MG 1 capsule Orally Once a day Active amLODIPine Besylate 5 MG as directed Ora lly Once a day Active Immunizations Vaccine Route Administration Date Status Comme nts COVID-19 Pfizer BioNTech Vaccine Unknown 10/07/2020 Adm inistered 09/17/2020 Social History Tobacco Use: Social History Observation Description Date Details (start date - stop date) Former Smoker 06/27/1990 - 06/27/2020 Tobacco Use/Smoking Question Answer Notes Are you a: former smoker When did you start smoking? 06/27/1990 When did you stop smoking? 06/27/2020 Additional Findings: Tobacco Non-User Current no n-smoker Alcohol Screen Question Answer Notes Did you have a drink contain ing alcohol in the past year? Yes How often did you have a dri nk containing alcohol in the past year? 4 or more times a week (4 points) Points 4 Interpretation Positive Tobacco use other than smoking: Question Answer Notes Are you an other tobacco user? No Problems Problem Type SNOMED Code ICD Code Onset Dates Problem Status W/U Status Risk Notes Problem Localized, primary osteoarthritis of the ankle and/or foot ([id number]) Primary osteoarthrit is, right ankle and foot (M19.071) Active confirmed Plan Of Treatment No Information Insurance Providers Payer Name Payer Address Payer Phone Subscriber Number Group Number Insured Name Patient Relationship to Insured Coverage Start Date Coverage End Date [facility] [address] [place] [phone] [id number] Leo Dickens Self - patient is the insured Medical (General) History Medical History History ICD Code High blood pressure Measles Mumps Chicken pox Surgical History Surgery Date(Month/Year) umbilical surgery hernia surgery wisdom teeth extraction colonoscopy
--- OUTSIDE RECORDS SUMMARY | 2024-11-07 08:59 | XMS_ITS | Clinical Summary ---
Author Organization [facility] Address [address] [facility] [address] [place] [address] Phone Care Team Providers Care Animal Keeper Head Name Role Phone Dori Casillas MD Primary Care Provider [phone] Allergies Active Allergy Reactions Criticality Noted Date Comments Lisinopril Other (see comments) 12/16/2020 Medications amLODIPine (NORVASC) 5 MG tablet Take 1 tablet (5 mg total) by mouth 1 (one) time each day 90 tablet 3 01/14/2022 Active metoprolol succinate XL (TOPROL-XL) 100 MG 24 hr tablet TAKE 1 TABLET(100 MG) BY MOUTH 1 TIME EACH DAY. DO NOT CRUSH OR CHEW 90 tablet 3 02/24/2023 Active Active Problems Problem Noted Date Diagnosed Date Obstructive nephropathy 12/17/2020 Labile hypertension due to being in a clinical e nvironment 12/17/2020 Vitamin D deficiency, not otherwise specified Secondary hyperparathyroidism 12/17/2020 Chronic kidney disease, stage 2 (mild) Essential hypertension 12/16/2020 Hyperkalemia 12/16/2020 Hypertensive renal disease 12/16/2020 Hyponatremia 12/16/2020 Resolved Problems Problem Noted Date Diagnosed Date Resolved Date Vesicoureteric reflux 12/16/20202020 Family History Medical History Relation Comments Hypertension Mother Relation Status Comments Father Mother Alive Social History Tobacco Use Types Packs/Day Years [...] on file Sexual Orientation Not on file Last Filed Vital Signs Vital Sign Reading Time Taken Comments Blood Pressure 136/78 01/14/2022 10:34 AM EDT Pulse 64 01/14/2022 10:34 AM EDT Temperature - - Respiratory Rate - - Oxygen Saturation 98% 01/14/2022 10:34 AM EDT Inhaled Oxygen Concentration - - Weight 82.2 kg (181 lb 3.2 oz) 01/14/2022 10:34 AM EDT Height 177.8 cm (5' 10 ) 07/16/2021 10:18 AM EST Body Mass Index 26 07/16/2021 10:18 AM EST Plan of Treatment Health Maintenance Due Date Last Done Comments Pneumococcal Vaccine: 50+ Ye ars (1 of 2 - PCV) 1964 Influenza Vaccine (Season Ended) 2025 Hepatitis B Vaccine Aged Out No longe r eligible based on patient's age to complete this topic Insurance [employer] Medicare [employer] Medicare Care Teams Animal Keeper Head Relationship Specialty Start Date End Date Dori Casillas MD [address] [place] PCP - General 07/07/20
--- OUTSIDE RECORDS SUMMARY | 2024-11-07 08:59 | XMS_ITS | Encounter Summary ---
Author Organization [facility] Address [address] [facility] [address] [place] [address] Phone Care Team Providers Care Subassembler Name Role Phone Dori Casillas MD Primary Care Provider [phone] Reason for Visit * Reason Comments Med Refill Encounter Details Date Type Department Care Team ([facility] st Contact Info) Description 11/28/2023 Refill [facility] [address] [facility] [address] [place] [phone] Nik Rahman MD [address] [facility] [address] [place] [phone] Social History Tobacco Use Types Packs/Day Years [...] on file documented as of this encounter Miscellaneous Notes * Telephone Encounter - Nik Rahman MD - 11/28/2023 11:04 AM EDT Needs appt documented in this encounter Plan of Treatment Not on file documented as of this encounter Visit Diagnoses Not on filedocumented in this encounter Care Teams Subassembler Relationship Specialty Start Date End Date Dori Casillas MD [address] [place] PCP - General 07/07/20 documented as of this encounter
== END 2024-11-07 08:44 | disposition home or self-care (01) ==
LOC: HO.US 08:43
PROVIDERS: PCP Internal Medicine; Visit Provider Urology
DX: N13.30 Unspecified hydronephrosis (principal)
CPT/HCPCS: 76775

== ENCOUNTER → 2024-11-07 08:44 | Outpatient (BNV) | payer MEDICARE, SELFPAY | PROVIDERS: PCP Internal Medicine; Visit Provider Radiology Diagnostic Radiology | DX: N13.39 Other hydronephrosis (principal) | CPT/HCPCS: 76775 ==

== ENCOUNTER 2024-11-20 08:21 | Outpatient (AMB) | payer MEDICARE, SELFPAY ==
--- NOTE | 2024-11-20 08:28 | A.OFFVIS_ITS ---
Intake Visit Reasons: 1y/US Intake Note: Pt presents to the office today for a 1 year follow up/US. Allergies hydrochlorothiazide Allergy (Unknown, Verified 11/20/24 08:28) Alcohol hyponatremia lisinopril Allergy (Unknown, Verified 11/20/24 08:28) hyperkalemia HPI Comments Details: Leo is a pleasant male. He is a patient of Dr. Casillas. He is seen for the following urologic conditions. - solitary kidney Solitary kidney Stable creatinine 1.03 Imaging - 10/19 renal ultrasound - Severe left hydronephrosis with associated cortical thinning without change. The right kidney is unremarkable PSA 12/13 1.0 Continue to follow with PCP - will require GERONIMO every 2 years [facility] Medical History Vertebral artery stenosis Stenosis of left vertebral artery Carotid aneurysm, left Alcohol abuse Hemorrhoids with complication Vitamin D deficiency History of hemorrhoids Hypercholesterolemia Left renal stone Solitary kidney Anemia Hypertension Surgical History H/O inguinal hernia repair H/O lithotripsy History of umbilical hernia repair History of tonsillectomy Social History Housing: House Alcohol intake: current Alcohol intake frequency: 3 or more drinks per day Alcohol type: beer Comment: QD beer 3-4 beers Patient Tobacco Use Status: Never used Tobacco Years Smoked: stopped 1990 hx of pack a day e-Cigarette/Vaping Use: Never Used Second Hand Smoke Exposure: No service: Yes Current occupational status: employed Cognitive needs: No Hearing needs: No Vision needs: Yes Review of Systems Const Denies chills and Denies fever(s) Card Reports no additional complaints and Denies syncope Resp Denies cough GI Denies abdominal pain and Denies heartburn Reports as per HPI and Denies change in libido Neuro Denies syncope Psych Denies change in libido Endo Denies change in libido Physical Exam Const General: cooperative, healthy appearing, comfortable and no acute distress Orientation/consciousness: patient oriented x3 HEENT Face and sinus: Yes normal facial exam Mouth: moist mucous membranes Neck Neck: Yes normal visual inspection, Yes full ROM and Yes trachea midline Chest Chest palpation & inspection: normal inspection of the chest Resp Effort & Inspection: normal respiratory effort, able to speak in complete sentences and no respiratory distress GI Inspection: Yes normal to inspection Back/Spine/Pelvis Cervical Spine: normal cervical lordosis Thoracic/Lumbar Spine: thoracic and lumbar spine normal to inspection Skin General skin exam: no rashes or lesions noted Neuro General: patient oriented x3, gait normal, tone normal and moves all extremities Extrem General: Yes normal to inspection and Yes capillary refill normal Results AMB Urinalysis, Automated UA Leukoctes 0 Pranay/uL Last Edit by Ashly Flores CMA on 11/20/24 08:34 UA Nitrite Negative Last Edit by Ashly Flores CMA on 11/20/24 08:34 UA Urobilinogen 0.2 mg/dL Last Edit by Ashly Flores CMA on 11/20/24 08:34 UA Protein 0 mg/dL Last Edit by Ashly Flores CMA on 11/20/24 08:34 UA pH 6.0 Last Edit by Ashly Flores CMA on 11/20/24 08:34 UA Blood 0 Chris/uL Last Edit by Ashly Flores CMA on 11/20/24 08:34 UA Specific [place] 1.015 Last Edit by Ashly Flores CMA on 11/20/24 08:34 UA Ketone Negative Last Edit by Ashly Flores CMA on 11/20/24 08:34 UA Bilirubin 0 mg/dL Last Edit by Ashly Flores CMA on 11/20/24 08:34 UA Glucose 0 mg/dL Last Edit by Ashly Flores CMA on 11/20/24 08:34 Results Reviewed Results Reviewed: Laboratory Last Values Urine pH (Auto) 6.0 11/20/24 08:33 Specific [place] (Auto) 1.015 11/20/24 08:33 Urine Protein (Auto) 0 mg/dL 11/20/24 08:33 Glucose (UA)(Auto) 0 mg/dL 11/20/24 08:33 Urine Ketones (Auto) Negative 11/20/24 08:33 Urine Blood (Auto) 0 Chris/uL 11/20/24 08:33 Urine Nitrite (Auto) Negative 11/20/24 08:33 Urine Bilirubin (Auto) 0 mg/dL 11/20/24 08:33 Urine Urobilinogen (Auto) 0.2 mg/dL 11/20/24 08:33 Leukocyte Esterase (Auto) 0 Pranay/uL 11/20/24 08:33 Assessment & Plan Assessment & Plan (1) Chronic kidney disease: Comment: Stage II, hypertrophic left kidney/obstructive uropathy Code(s): N18.9 - Chronic kidney disease, unspecified Category: Medical (2) Hydronephrosis: Code(s): N13.30 - Unspecified hydronephrosis Category: Medical Plan Follow-up p.r.n. Orders: Orders AMB Urinalysis Automated Today N13.30 - Unspecified hydronephrosis Patient Instructions: This note is constructed using voice recognition software. While every effort has been made to ensure accuracy community health program representative errors may have been included. Imaging studies, laboratory and physical exam results were discussed and reviewed in detail. No major barriers to patient understanding were identified. An opportunity to ask questions regarding the treatment plan was provided. All questions were answered. The patient expressed understanding and agreement with the above treatment plan. The patient is aware they should contact our office by phone for worsening of their current condition or the appearance of new urologic symptoms. Compliance is encouraged with any medications and followup testing that is ordered. It is a privilege to participate in the urologic care of your patient. If you have any questions or concerns regarding treatment for the above conditions, or other urologic issues, please do not hesitate to contact me. The office telephone contact is [phone]. Sincerely, Dr Alber Vasquez MD, [facility] - Urology Compassionate Specialist Care for the Genitourinary System Coding Level of Care Code Est Pt Level 4 (28674) Diagnoses Chronic kidney disease N18.9 Hydronephrosis N13.30
--- OUTSIDE RECORDS SUMMARY | 2024-11-20 08:31 | XMS_ITS | Patient Health Record ---
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
== END 2024-11-20 08:45 | disposition home or self-care (01) ==
LOC: HO.HUSH 08:22
PROVIDERS: PCP Internal Medicine; Visit Provider Urology
DX: N18.9 Chronic kidney disease, unspecified (principal); N13.30 Unspecified hydronephrosis
CPT/HCPCS: 99214

== ENCOUNTER → 2024-11-20 08:21 | Outpatient (BNVA) | payer MEDICARE, SELFPAY | PROVIDERS: PCP Internal Medicine; Visit Provider Urology | DX: N18.9 Chronic kidney disease, unspecified (principal); N13.30 Unspecified hydronephrosis; N26.1 Atrophy of kidney (terminal) | CPT/HCPCS: 81003; 99212 ==

== ENCOUNTER 2025-01-15 08:27 | Outpatient (REF) | payer MEDICARE, SELFPAY ==
--- NOTE | ~2025-01-15 | XR_ITS ---
EXAMINATION: XR SHOULDER, RIGHT CLINICAL INFORMATION: M25.511 - Pain in right shoulder COMPARISON: None available. TECHNIQUE: AP external rotation, Grashey, scapular Y, and axillary views of the right shoulder. FINDINGS: Sclerosis along the articular surfaces of the glenohumeral joint with subchondral cyst formation and joint space narrowing. Small marginal osteophyte formation humeral head/greater tuberosity junction. No acute cortical disruption or malalignment. No lytic or blastic lesions. 2 mm calcified pulmonary nodules, right upper lobe no fully included in the [id number]. XR/XR shoulder RT min 2V IMPRESSION: Moderate to severe osteoarthrosis, glenohumeral joint. Electronically signed by: Herbert Archibald MD 01/15/2025 09:35 AM EDT
== END 2025-01-15 08:28 | disposition home or self-care (01) ==
LOC: HO.XRAY 08:27
PROVIDERS: PCP Internal Medicine; Visit Provider Internal Medicine
DX: I12.9 Hypertensive chronic kidney disease with stage 1 through stage 4 chronic kidney disease, or unspecified chronic kidney disease (principal); N18.2 Chronic kidney disease, stage 2 (mild); E78.00 Pure hypercholesterolemia, unspecified; M25.511 Pain in right shoulder; E66.3 Overweight; Z68.26 Body mass index [BMI] 26.0-26.9, adult; R20.0 Anesthesia of skin; Z79.899 Other long term (current) drug therapy; Z13.30 Encounter for screening examination for mental health and behavioral disorders, unspecified
CPT/HCPCS: 73030; 96127; 99212

== ENCOUNTER 2025-01-15 08:27 | Outpatient (AMB) | payer MEDICARE, SELFPAY ==
--- NOTE | 2025-01-15 08:34 | A.OFFPC_ITS ---
Vital Signs 01/15/25 08:35 Height 5 ft 10 in Weight 183 lb 2 oz BMI 26.3 BP 132/84 Blood Pressure Location Lt brachial Position Sitting Pulse 75 Pulse Source Pulse Oximeter Temp 97.3 F Temp Source Temporal Artery Scan Pulse Oximetry (%) 99 Oxygen Delivery Method Room Air Intake Visit Reasons: 6 Month F/U Allergies hydrochlorothiazide Allergy (Unknown, Verified 01/15/25 08:37) Alcohol hyponatremia lisinopril Allergy (Unknown, Verified 01/15/25 08:37) hyperkalemia Tobacco use date assessed: 01/15/25 Fall risk assessment: No Falls in past year Last assessed Fall Risk: 01/15/25 Dental Screening Dental Screen Date: 01/15/25 Did you have a dental visit in the last 12 months?: Yes Did you have a dental problem in the last 6 months where you did not have access to dental care?: No Was dental information given to patient?: Patient has dentist [facility] Medical History Vertebral artery stenosis Stenosis of left vertebral artery Carotid aneurysm, left Alcohol abuse Hemorrhoids with complication Vitamin D deficiency History of hemorrhoids Hypercholesterolemia Left renal stone Solitary kidney Anemia Hypertension Surgical History H/O inguinal hernia repair H/O lithotripsy History of umbilical hernia repair History of tonsillectomy Social History Housing: House Alcohol intake: current Alcohol intake frequency: 3 or more drinks per day Alcohol type: beer Comment: QD beer 3-4 beers Patient Tobacco Use Status: Never used Tobacco Years Smoked: stopped 1990 hx of pack a day e-Cigarette/Vaping Use: Never Used Second Hand Smoke Exposure: No service: Yes Current occupational status: employed Cognitive needs: No Hearing needs: No Vision needs: Yes Questionnaire PHQ-9 Over the last 2 weeks, how often have you been bothered by any of the following problems? 1. Little interest or pleasure in doing things: not at all 2. Feeling down, depressed, or hopeless: not at all 3. Trouble falling or staying asleep, or sleeping too much: not at all 4. Feeling tired or having little energy: not at all 5. Poor appetite or overeating: not at all 6. Feeling bad about yourself - or that you are a failure or have let yourself or your family down: not at all 7. Trouble concentrating on things, such as reading the newspaper or watching television: not at all 8. Moving or speaking so slowly that other people could have noticed. Or the opposite - being so fidgety or restless that you have been moving around a lot more than usual: not at all 9. Thoughts that you would be better off or of hurting yourself in some way: not at all Total score: 0 Source: Developed by Drs. Chaparro Sheppard, Evelyn Del Rosario, Segundo Mckeon and colleagues, with an educational maria del rosario from [employer]. Thrive Questionnaire Date Thrive assessed: 07/13/24 I am a: Patient What is your living situation today?: I have a steady place to live Within the past 12 months, did the food you bought not last and you didn't have the money to get more?: Never true Within the past 12 months, did you worry whether your food would run out before you got money to buy more?: Never true Do you have trouble paying for medicines?: No Do you have trouble getting transportation to medical appointments?: No Do you have trouble paying your heating and electricity bill?: No Do you have trouble taking care of your child, family member or friend?: No Do you have trouble with day-to-day activities such as bathing, preparing meals, shopping, managing finances, etc.?: No Are you currently unemployed and looking for a job?: No Are you interested in more education?: No Please select the resources that you would like help with: None Currently or been in a relationship where the following occur: No concerns reported THRIVE Score: 0 AUDIT C Alcohol Use Questionnaire (AUDIT-C) 1. How often do you have a drink containing alcohol?: 4 or more times a week 2. How many drinks containing alcohol do you have on a typical day when you are drinking?: 3 or 4 3. How often do you have six or more drinks on one occasion?: Monthly Total Score: 7 MELANIE-7 AMB Questionnaire MELANIE-7 Date MELANIE - 7 assessed: 07/13/24 Feeling nervous, anxious, or on edge: 0 = Not at all Not being able to stop or control worryin = Not at all Worrying too much about different things: 0 = Not at all Trouble relaxin = Not at all Being so restless that it is hard to sit still: 1 = Several days Becoming easily annoyed or irritable: 0 = Not at all Feeling afraid as if something awful might happen: 0 = Not at all Total MELANIE-7 score (0-4 normal; 5-9 mild; 10-14 moderate; 15-21 severe): 1 Source: Developed by Drs. Chaparro Sheppard, Evelyn Del Rosario, Segundo Mckeon and colleagues, with an educational maria del rosario from [employer]. Physical exam (Primary Care) Vital Signs: Last Vital Signs Temp 97.3 F 01/15/25 08:35 Pulse 75 01/15/25 08:35 BP 132/84 01/15/25 08:35 Pulse Ox 99 01/15/25 08:35 Oxygen Delivery Method Room Air 01/15/25 08:35 BMI result Body Mass Index 26.3 Tobacco/Smoking Status: Tobacco use Status Tobacco use date assessed 01/15/25 01/15/25 08:38 Patient Tobacco Use Status Never used Tobacco 01/15/25 08:38 e-Cigarette/Vaping Use Never Used 01/15/25 08:38 PHQ-9: PHQ-9 Score PHQ-9: Total score 0 01/15/25 08:51 Thrive Assessment: Date of Thrive Assessment Date Thrive assessed 07/13/24 01/15/25 08:38 Currently or been in a relationship where the following occur: No concerns reported Const General: alert; No acute distress Eyes Conjunctivae: conjunctivae normal Resp Auscultation: clear to auscultation bilaterally Cardio Rate: regular rate Rhythm: regular rhythm GI Inspection: Yes normal to inspection Extrem Other: Bilateral lower extremity swelling 2+, right upper extremity limited to 90 degree elevation/abduction patient does have some tenderness on the supraspinatus muscle right-sided. Left is negative patient complains of num bness of the fingers General: No edema Coding Level of Care Code Est Pt Level 4 (55457) Complex EM visit Add On G2211 Diagnoses Hypertension I10 Hypercholesterolemia E78.00 Overweight (BMI 25.0-29.9) E66.3 Chronic kidney disease N18.9 Numbness of right hand R20.0 Right shoulder pain M25.511 Assessment & Plan Assessment & Plan (1) Hypertension: Code(s): I10 - Essential (primary) hypertension Category: Medical Plan: Continue with blood pressure medication. Decrease salt intake and exercise patient takes amlodipine 5 mg once a day metoprolol 100 mg once a day blood work is pending (2) Hypercholesterolemia: Code(s): E78.00 - Pure hypercholesterolemia, unspecified Category: Medical Plan: Avoid fried foods, chicken skin, eggs, butter margarine, pastries and meat. Be it pork or beef they have a lot of cholesterol LDL goal of less than 130 and triglyceride of less than 150 patient needs to get blood work (3) Overweight (BMI 25.0-29.9): Code(s): E66.3 - Overweight Category: Medical Plan: Diet and exercise (4) Chronic kidney disease: Comment: Stage II, hypertrophic left kidney/obstructive uropathy Code(s): N18.9 - Chronic kidney disease, unspecified Category: Medical Plan: Patient follows up with urology. Had an ultrasound done showing severe left hydronephrosis. While the right kidney is normal (5) Numbness of right hand: Code(s): R20.0 - Anesthesia of skin Category: Medical Plan: Declined any workup for now (6) Right shoulder pain: Code(s): M25.511 - Pain in right shoulder Category: Medical Plan: Will start with x-ray. Declined any physical therapy for now Plan History of Present Illness The patient is a 79-year-old male presenting for a follow-up visit and physical examination. He has a history of hypertension, hypercholesterolemia, and chronic kidney disease, with a solitary kidney and severe left hydronephrosis. The patient was last seen in June and has been following up with urology, with the most recent visit on November 20. The patient underwent an ultrasound on November 07, which showed persistent severe left hydronephrosis with associated cortical thinning, while the right kidney remains normal. Blood work from October indicated mild hyponatremia, with normal electrolytes, sugar, and liver function. The patient was advised to have further blood work done, which has not yet been completed. The patient reports a history of alcohol abuse and is currently managing hypertension with amlodipine and metoprolol. He has a goal of maintaining LDL cholesterol below 130 mg/dL and triglycerides below 150 mg/dL, with pending blood work to assess these levels. The patient experiences right shoulder pain, suspected to be rotator cuff syndrome, with limited range of motion and tenderness on the supraspinatus muscle. He also reports numbness in the fingers, which is suspected to be carpal tunnel syndrome. The patient has declined physical therapy for now and plans to have an x-ray to further evaluate the shoulder issue. Health Maintenance - Colon cancer screening overdue since 2017 - Blood pressure management with amlodipine and metoprolol - Cholesterol management with LDL goal of less than 130 mg/dL and triglyceride goal of less than 150 mg/dL Social History - History of alcohol abuse - Regular physical activity: Patient walks every day Review of Systems - Musculoskeletal: Reports right shoulder pain with limited range of motion, numbness in fingers - Neurological: Reports numbness in fingers - Genitourinary: Reports nocturia, waking up multiple times at night to urinate Physical Exam - Musculoskeletal: Right upper extremity limited to 90-degree elevation/abduction, tenderness on the supraspinatus muscle on the right side - Neurological: Numbness of the fingers - Extremities: Bilateral lower extremity swelling, 2+ Results - Ultrasound (November 07): Persistent severe left hydronephrosis with associated cortical thinning, right kidney normal - Blood work (October): Mild hyponatremia, normal electrolytes, normal sugar, normal liver function Plan The patient will continue to manage hypertension with amlodipine and metoprolol, with blood work pending to assess current levels and effectiveness of treatment. For hypercholesterolemia, the patient aims to maintain LDL cholesterol below 130 mg/dL and triglycerides below 150 mg/dL, with dietary and exercise modifications encouraged. The patient is advised to increase water intake to support kidney function, given the history of chronic kidney disease and severe left hydronephrosis. An x-ray of the right shoulder is planned to evaluate the suspected rotator cuff syndrome, with physical therapy deferred until further evaluation. The patient is advised to monitor symptoms of carpal tunnel syndrome, with a wrist brace recommended for nighttime use if symptoms persist. Follow-up with urology will continue to monitor kidney function, and the patient is reminded to complete overdue blood work and colon cancer screening. Patient was informed and verbally consented to the use of an ambient scribe for clinic note documentation during this visit. Discussion Notes I discussed with the patient the importance of managing hypertension and hypercholesterolemia through medication and lifestyle changes, including diet and exercise. We reviewed the need for increased water intake to support kidney function, especially given the severe left hydronephrosis. I explained the plan for an x-ray to evaluate the right shoulder pain and discussed the potential for physical therapy based on the results. The patient was informed about the symptoms of carpal tunnel syndrome and advised on the use of a wrist brace if needed. We also talked about the importance of completing overdue blood work and colon cancer screening, and the patient agreed to follow up with urology for ongoing kidney monitoring. Patient Instructions - Continue taking amlodipine and metoprolol as prescribed. - Maintain a healthy diet and exercise regularly to manage cholesterol levels. - Increase water intake to support kidney health. - Schedule and complete overdue blood work and colon cancer screening. - Monitor shoulder pain and numbness in fingers; use a wrist brace at night if needed. - Follow up with urology as scheduled. Orders: Orders XR shoulder RT min 2V Today M25.511 - Pain in right shoulder
[2025-01-15 08:35] VITALS: BP 132/84; PULSE 75; TEMP 36.3; O2SAT 99; BMI 26.3
--- OUTSIDE RECORDS SUMMARY | 2025-01-15 08:40 | XMS_ITS | Encounter Summary ---
Author Organization [facility] Address [address] [facility] [address] [place] [address] Phone Care Team Providers Care Hosted Services Analyst Name Role Phone Dori Casillas MD Primary Care Provider [phone] Reason for Visit * Reason Comments Med Refill Encounter Details Date Type Department Care Team ([facility] st Contact Info) Description 11/28/2023 Refill [facility] [address] [facility] 200 [place] [phone] Nik Rahman MD [address] [facility] [address] [place] [phone] Social History Tobacco Use Types Packs/Day Years [...] on filedocumented in this encounter Care Teams Hosted Services Analyst Relationship Specialty Start Date End Date Dori Casillas MD [address] OMAY[place] WELCH PCP - General 07/07/20 documented as of this encounter
--- OUTSIDE RECORDS SUMMARY | 2025-01-15 08:40 | XMS_ITS | Clinical Summary ---
Author Organization [facility] Address [address] [place], [place] [address] Phone Care Team Providers Care Retail Sales Manager Name Role Phone Dori Casillas MD Primary Care Provider [phone] Allergies Active Allergy Reactions Criticality Noted Date Comments Lisinopril 12/16/2020 Other reaction(s): Other (see comments) Medications amLODIPine (NORVASC) 5 MG tablet Take 5 mg by mouth daily. Active metoprolol succinate (TOPROL-XL) 100 MG 24 hr tablet 11/17/2022 Act fanny Active Problems Problem Noted Date Diagnosed Date Primary localized osteoarthrosis of ankle and fo ot 07/01/2023 Secondary hyperparathyroidism 12/17/2020 Vitamin D deficiency 12/17/2020 Chronic kidney disease, stage 2 (mild) Essential hypertension 12/16/2020 Hypertensive renal disease 12/16/2020 Immunizations Immunization Administration Dates Next Due COVID-19 (Pre-04/18) Pfizer Vaccine, mRNA, PF ,09/16/2020 Influenza Trivalent Preservative Free IM 015 Social History Tobacco Use Types Packs/Day Years Used Date Smoking Tobacco: Never Smokeless Tobacco: Never Tobacco Cessation:Counseling Given: Not Answered Alcohol Use Standard Drinks/Week Comments Yes 0 (1 standard drink = 0.6 oz pur e alcohol) Education Answer Date Recorded Are you interested in more education? Not on sampson e 10/22/2022 Are you concerned about learning? Not on file 10/22/2022 No 10/22/2022 No 10/22/2022 Digital Access Answer Date Recorded No 11/20/2022 No 11/20/2022 Reliable internet access at home? Not on file 11/20/2022 Device with a working camera? Not on file Sex and Gender Information Value Date Recorded Sex Assigned at Not on file Legal Sex Male 12:47 PM EST Gender Identity Not on file Sexual Orientation Not on file Last Filed Vital Signs Vital Sign Reading Time Taken Comments Blood Pressure 128/80 07/01/2023 9:54 AM EST man ually Pulse 82 07/01/2023 9:08 AM EST Temperature 36.8 C (98.2 F) 07/01/2023 9:08 AM EST Respiratory Rate 18 07/01/2023 9:08 AM EST Oxygen Saturation 100% 07/01/2023 9:08 AM EST Inhaled Oxygen Concentration - - Weight 86.2 kg (190 lb) 09/03/2020 1:11 PM EST Height 177.8 cm (5' 10 ) 09/03/2020 1:11 PM EST Body Mass Index 27.26 09/03/2020 1:11 PM EST Plan of Treatment Health Maintenance Due Date Last Done Comments Adult Td,Tdap Booster 1946 LIPID PANEL 1946 DEPRESSION SCREENING 1958 HEPATITIS C SCREENING 1964 PNEUMOCOCCAL VACCINES (50+ years) (1 of 1 - PCV) 1996 ZOSTER VACCINES (1 of 2) 1996 RSV VACCINE (1 - 1-dose 75+ series) 2021 BLOOD PRESSURE 12/30/2023 07/01/2023 COVID-19 VACCINE (3 - 2023-2 5 season) 2024 10/07/2020, 09/16/2020 SMOKING STATUS SCREENING (On ce After 26 Yrs) Completed 07/01/2023 HEPATITIS A VACCINES Aged Out No long er eligible based on patient's age to complete this topic HIB VACCINES Aged Out No longer eligi ble based on patient's age to complete this topic MENINGOCOCCAL VACCINES (ACWY) Aged Out No longer eligible based on patient's age to complete this topic MENINGOCOCCAL VACCINES (B) Aged Out N o longer eligible based on patient's age to complete this topic Medical Devices Not on file Insurance [employer] [place] [id number] [employer] [place] [phone] [employer] [place] [phone] [employer] RE[employer] [place] [id number] [employer] Care Teams Retail Sales Manager Relationship Specialty Start Date End Date Dori Casillas MD [address] [place] [address] [place] [phone] PCP - General Internal Medicine 09/03/20 Additional Source Comments The information contained in this document represents components of the legal health record. It is not the complete legal health record.[facility]
--- OUTSIDE RECORDS SUMMARY | 2025-01-15 08:40 | XMS_ITS | Patient Health Record ---
Author Organization [facility] Address [address] [place] [address] Care Team Providers Care Ebay Reseller Name Role Phone Dori Casillas Primary Care Provider Unavailmanuel e Black, Judit Unavailable [phone] Allergies No Known Allergies Reason For Referral [...] Problem Status W/U Status Risk Notes Problem Primary osteoarthritis , right ankle and foot (M19.071) Active confirmed Plan Of Treatment No Information Insurance Providers Payer Name Payer Address Payer Phone Subscriber Number Group Number Insured Name Patient Relationship to Insured Coverage Start Date Coverage End Date [facility] [address] [place] [phone] [id number] Leo Dickens Self - patient is the insured Medical (General) History Medical History History ICD Code High blood pressure Measles Mumps Chicken pox Surgical History Surgery Date(Month/Year) umbilical surgery hernia surgery wisdom teeth extraction colonoscopy
== END 2025-01-15 09:01 | disposition home or self-care (01) ==
LOC: HO.HMCH 08:27
PROVIDERS: PCP Internal Medicine; Visit Provider Internal Medicine
DX: I12.9 Hypertensive chronic kidney disease with stage 1 through stage 4 chronic kidney disease, or unspecified chronic kidney disease (principal); E78.00 Pure hypercholesterolemia, unspecified; E66.3 Overweight; N18.9 Chronic kidney disease, unspecified; R20.0 Anesthesia of skin; M25.511 Pain in right shoulder

== ENCOUNTER → 2025-01-15 09:08 | Outpatient (BNV) | payer MEDICARE, SELFPAY | PROVIDERS: PCP Internal Medicine; Visit Provider Radiology Diagnostic Radiology | DX: M19.011 Primary osteoarthritis, right shoulder (principal) | CPT/HCPCS: 73030 ==

== ENCOUNTER 2025-05-13 13:04 | Outpatient (AMB) | payer MEDICARE, SELFPAY ==
--- NOTE | 2025-05-13 13:14 | A.OFFPC_ITS ---
Vital Signs 05/13/25 13:15 Height 5 ft 10 in Weight 186 lb BMI 26.7 BP 120/70 Blood Pressure Location Lt brachial Position Sitting Pulse 71 Pulse Source Pulse Oximeter Pulse Oximetry (%) 97 Oxygen Delivery Method Room Air Intake Visit Reasons: Stomach issues at night time Small Business Banking Officer Required: No Accompanied by: Self / Same As Patient Allergies hydrochlorothiazide Allergy (Unknown, Verified 05/13/25 13:16) Alcohol hyponatremia lisinopril Allergy (Unknown, Verified 05/13/25 13:16) hyperkalemia Medication List - Last Reconciled 05/13/25 by Shakila Martines MD amlodipine 5 mg PO DAILY metoprolol succinate ER 100 mg PO DAILY omeprazole 20 mg PO DAILY simethicone (Gas Relief (simethicone)) 80 mg PO BID-QID PRN Tobacco use date assessed: 05/13/25 Fall risk assessment: No Falls in past year Last assessed Fall Risk: 05/13/25 Dental Screening Dental Screen Date: 05/13/25 Did you have a dental visit in the last 12 months?: Yes Did you have a dental problem in the last 6 months where you did not have access to dental care?: No Was dental information given to patient?: Patient has dentist HPI HPI Comments History of Present Illness Details The patient is a 79-year-old male presenting with nocturnal heartburn and new-onset gas pains. He has experienced heartburn on and off for a couple of years, which occurs only at night when he lies down and is managed with Tums. He identifies spicy foods and eating chocolate before bed as triggers. For the last week, he has developed new symptoms at night, including gas pains, bloating, and cramps, which are relieved by sitting up. He also reports a nocturnal cough. Denies nausea and vomiting. Denies taking any Pepcid or PPIs. The patient reports one episode of blood in his stool last Tuesday. He confirms no blood in his urine and has not seen any blood since that episode. He reports a history of colonic polyps and has had colonoscopies in the past, with the last one being clear, after which he was told no further screenings were needed per patient. Denies any constipation or diarrhea. His past medical history is significant for hypertension, treated with amlodipine 5 mg and metoprolol 100 mg daily. His past surgical history includes two umbilical hernia repairs. [facility] Medical History Vertebral artery stenosis Stenosis of left vertebral artery Carotid aneurysm, left Alcohol abuse Hemorrhoids with complication Vitamin D deficiency History of hemorrhoids Hypercholesterolemia Left renal stone Solitary kidney Anemia Hypertension Surgical History H/O inguinal hernia repair H/O lithotripsy History of umbilical hernia repair History of tonsillectomy Social History Housing: House Alcohol intake: current Alcohol intake frequency: 3 or more drinks per day Alcohol type: beer Comment: QD beer 3-4 beers Patient Tobacco Use Status: Never used Tobacco Years Smoked: stopped 1990 hx of pack a day e-Cigarette/Vaping Use: Never Used Second Hand Smoke Exposure: No service: Yes Current occupational status: employed Cognitive needs: No Hearing needs: No Vision needs: Yes Questionnaire PHQ-9 Over the last 2 weeks, how often have you been bothered by any of the following problems? 1. Little interest or pleasure in doing things: not at all 2. Feeling down, depressed, or hopeless: not at all 3. Trouble falling or staying asleep, or sleeping too much: not at all 4. Feeling tired or having little energy: not at all 5. Poor appetite or overeating: not at all 6. Feeling bad about yourself - or that you are a failure or have let yourself o r your family down: not at all 7. Trouble concentrating on things, such as reading the newspaper or watching television: not at all 8. Moving or speaking so slowly that other people could have noticed. Or the opposite - being so fidgety or restless that you have been moving around a lot more than usual: not at all 9. Thoughts that you would be better off or of hurting yourself in some way: not at all Total score: 0 Source: Developed by Drs. Chaparro Sheppard, Evelyn Del Rosario, Segundo Mckeon and colleagues, with an educational maria del rosario from [employer]. Thrive Questionnaire Date Thrive assessed: 05/13/25 I am a: Patient What is your living situation today?: I have a steady place to live Within the past 12 months, did the food you bought not last and you didn't have the money to get more?: Never true Within the past 12 months, did you worry whether your food would run out before you got money to buy more?: Never true Do you have trouble paying for medicines?: No Do you have trouble getting transportation to medical appointments?: No Do you have trouble paying your heating and electricity bill?: No Do you have trouble taking care of your child, family member or friend?: No Do you have trouble with day-to-day activities such as bathing, preparing meals, shopping, managing finances, etc.?: No Are you currently unemployed and looking for a job?: No Are you interested in more education?: No Please select the resources that you would like help with: None Currently or been in a relationship where the following occur: No concerns reported THRIVE Score: 0 AUDIT C Alcohol Use Questionnaire (AUDIT-C) 1. How often do you have a drink containing alcohol?: 4 or more times a week 2. How many drinks containing alcohol do you have on a typical day when you are drinking?: 3 or 4 3. How often do you have six or more drinks on one occasion?: Monthly Total Score: 7 MELANIE-7 AMB Questionnaire MELANIE-7 Date MELANIE - 7 assessed: 05/13/25 Feeling nervous, anxious, or on edge: 0 = Not at all Not being able to stop or control worryin = Not at all Worrying too much about different things: 0 = Not at all Trouble relaxin = Not at all Being so restless that it is hard to sit still: 1 = Several days Becoming easily annoyed or irritable: 0 = Not at all Feeling afraid as if something awful might happen: 0 = Not at all Total MELANIE-7 score (0-4 normal; 5-9 mild; 10-14 moderate; 15-21 severe): 1 Source: Developed by Drs. Chaparro Sheppard, Evelyn Del Rosario, Segundo Mckeon and colleagues, with an educational maria del rosario from [employer]. Physical exam (Primary Care) Vital Signs: Last Vital Signs Pulse 71 05/13/25 13:15 BP 120/70 05/13/25 13:15 Pulse Ox 97 05/13/25 13:15 Oxygen Delivery Method Room Air 05/13/25 13:15 General: Well-appearing, alert, oriented ?3, in no acute distress.ts. Cardiovascular: RRR, S1-S2 appreciated, no murmurs, rubs or gallops. Respiratory: Lungs clear to auscultation bilaterally, no wheezes, rales or rhonchi. Abdomen: Soft, nontender, nondistended. Normoactive bowel sounds. BMI result Body Mass Index 26.7 Tobacco/Smoking Status: Tobacco use Status Tobacco use date assessed 05/13/25 05/13/25 13:23 Patient Tobacco Use Status Never used Tobacco 05/13/25 13:23 e-Cigarette/Vaping Use Never Used 05/13/25 13:23 PHQ-9: PHQ-9 Score PHQ-9: Total score 0 05/13/25 13:23 Thrive Assessment: Date of Thrive Assessment Date Thrive assessed 05/13/25 05/13/25 13:23 Currently or been in a relationship where the following occur: No concerns reported Coding Level of Care Code Est Pt Level 4 (92445) Diagnoses Heart burn R12 Flatulence, eructation, and gas pain R14.3; R14.1; R14.2 Hematochezia K92.1 Assessment & Plan Assessment & Plan (1) Heart burn: Code(s): R12 - Heartburn Category: Medical Plan: Patient presenting with intermittent heartburn for the past 2 years, mostly occurs at night, with new onset nocturnal gas pain and cough for the past week. Reports that symptoms are aggravated with spicy food and chocolate before bed. Denies taking any PPIs at this time. Uses Tums as needed. Patient presenting with symptoms of GERD with abdominal bloating, will test for H pylori. A prescription for omeprazole provided for a 4-week course, advised to be started only after the stool sample has been collected, taken 30 minutes before breakfast. May use Tums in the interim. Provided education on lifestyle modifications, including avoiding eating 2-3 hours before bed, remaining upright after meals, and avoiding trigger foods like spicy items, chocolate, and caffeine. Educational material printout provided. (2) Flatulence, eructation, and gas pain: Code(s): R14.3 - Flatulence; R14.1 - Gas pain; R14.2 - Eructation Plan: start simethicone as needed for relief of gas pain. (3) Hematochezia: Code(s): K92.1 - Melena Plan: The patient reports a single, self-resolved episode of blood in the stool. Given his history of hemorrhoids and colonoscopies in the past, with the last one being clear, after which he was told no further screenings were needed per patient, he will be monitored.No immediate workup is planned, but the patient is advised to report any recurrence. Orders: Orders H pylori Ag Stool Today R12 - Heartburn Medications: New simethicone (Gas Relief (simethicone)) 80 mg PO BID-QID PRN 30 tabs 0RF abdominal distention omeprazole 20 mg PO DAILY 30 caps 0RF gastritis Discontinued hydrocortisone 1% Discontinued Reason: Patient no longer taking 1 appl topical BID 28.35 grams 0RF mupirocin 2% Discontinued Reason: Patient no longer taking 1 appl topical BID 22 grams 0RF
[2025-05-13 13:15] VITALS: BP 120/70; PULSE 71; O2SAT 97; BMI 26.7
== END 2025-05-13 13:56 | disposition home or self-care (01) ==
LOC: HO.HMCH 13:05
PROVIDERS: PCP Internal Medicine; Visit Provider Student in an Organized Health Care Education/Training Program
DX: R12 Heartburn (principal); R14.3 Flatulence; R14.1 Gas pain; R14.2 Eructation; K92.1 Melena

== ENCOUNTER → 2025-05-13 13:04 | Outpatient (BNVA) | payer MEDICARE, SELFPAY | PROVIDERS: PCP Internal Medicine; Visit Provider Student in an Organized Health Care Education/Training Program | DX: R12 Heartburn (principal); I10 Essential (primary) hypertension; R14.3 Flatulence; R14.1 Gas pain; R14.2 Eructation; K92.1 Melena; Z79.899 Other long term (current) drug therapy | CPT/HCPCS: 96127; 99212 ==

== ENCOUNTER 2025-05-14 11:45 | Outpatient (REF) | payer MEDICARE, SELFPAY | END 2025-05-14 11:46 | disposition home or self-care (01) | LOC: HO.LNP 11:45 | PROVIDERS: Visit Provider Student in an Organized Health Care Education/Training Program | DX: R12 Heartburn (principal) | CPT/HCPCS: 87338 ==

== ENCOUNTER 2025-06-14 06:58 | Outpatient (REF) | payer MEDICARE, SELFPAY ==
--- OUTSIDE RECORDS SUMMARY | 2025-06-14 07:01 | XMS_ITS | Clinical Summary ---
Author Organization [facility] Address [address] [place], [place] [address] Phone Care Team Providers Care Tool Maintenance Worker Name Role Phone Dori Casillas MD Primary Care Provider [phone] Allergies Active Allergy Reactions Criticality Noted Date [...] COVID-19 (Pre-04/18) Pfizer Vaccine, mRNA, PF ,09/16/2020 INFLUENZA, SPLIT VIRUS, TRIVALENT PF 03/26/2015 Social History Tobacco Use Types Packs/Day Years [...] 75+ series) 2021 BLOOD PRESSURE 12/30/2023 07/01/2023 INFLUENZA VACCINE (#1) 2025 03/26/2015 COVID-19 VACCINE (3 - 2024-2 6 season) 2025 10/07/2020, 09/16/2020 SMOKING STATUS SCREENING (On ce [...] topic Medical Devices Not on file Insurance [employer] MEDICARE REPLACEMENT MEDICARE REPLACEMENT MEDICARE REPLACEMENT [employer] Care Teams Tool Maintenance Worker Relationship Specialty Start Date End Date Dori Casillas MD [address] [place] [address] [place] [phone] PCP - General Internal Medicine 09/03/20 Additional Source Comments The information contained in this document represents components of the legal health record. It is not the complete legal health record.[facility]
--- OUTSIDE RECORDS SUMMARY | 2025-06-14 07:01 | XMS_ITS | Encounter Summary ---
Author Organization [facility] Address [address] [facility] [address] [place] [address] Phone Care Team Providers Care Customer Sales Distributor Name Role Phone Dori Casillas MD Primary Care Provider [phone] Reason for Visit * Reason Comments Med Refill Encounter Details Date Type Department Care Team ([facility] st Contact Info) Description 11/28/2023 Refill [facility] [address] [facility] [address] [place] [phone] Nik Rahman MD [address] [facility] [address] [place] [phone] Social History Tobacco Use Types Packs/Day Years [...] on filedocumented in this encounter Care Teams Customer Sales Distributor Relationship Specialty Start Date End Date Dori Casillas MD [address] OMAY[place] WELCH PCP - General 07/07/20 documented as of this encounter
--- OUTSIDE RECORDS SUMMARY | 2025-06-14 07:01 | XMS_ITS | Patient Health Record ---
Author Organization [facility] kaylee Mcqueeney Address [address] [place] [address] Care Team Providers Care Hospital Coordinator Name Role Phone Dori Casillas Primary Care Provider Unavailabl e Black, Judit Unavailable [phone] Allergies No Known Allergies Reason For Referral [...] primary osteoarthritis of the ankle and/or foot ([id number]) Primary osteoarthrit is, right ankle and foot (M19.071) Active confirmed Plan Of Treatment No Information Insurance Providers Payer Name Payer Address Payer Phone Subscriber Number Group Number Insured Name Patient Relationship to Insured Coverage Start Date Coverage End Date [facility] [address] [place] [phone] [id number] Leo Dickens Self - patient is the insured Medical (General) History Medical History History ICD Code High blood pressure Measles Mumps Chicken pox Surgical History Surgery Date(Month/Year) umbilical surgery hernia surgery wisdom teeth extraction colonoscopy
--- OUTSIDE RECORDS SUMMARY | 2025-06-14 07:01 | XMS_ITS | Clinical Summary ---
Author Organization [facility] Address [address] [facility] [facility] [address] [place] [address] Phone Care Team Providers Care Quality Assurance Analyst Name Role Phone Dori Casillas MD Primary Care Provider [phone] Allergies Active Allergy Reactions Criticality Noted Date [...] of 2 - PCV) 1965 Influenza Vaccine (#1) 2025 Hepatitis B Vaccine Aged Out No longe r eligible based on patient's age to complete this topic Insurance [employer] Care Teams Quality Assurance Analyst Relationship Specialty Start Date End Date Dori Casillas MD [address] [place] PCP - General 07/07/20
--- OUTSIDE RECORDS SUMMARY | 2025-06-14 07:01 | XMS_ITS | Encounter Summary ---
Author Organization [facility] Address [address] [facility] 200 [place] [address] Phone Care Team Providers Care Director Digital Advertising Name Role Phone Dori Casillas MD Primary Care Provider [phone] Reason for Visit * Reason Comments Med Refill Encounter Details Date Type Department Care Team ([facility] st Contact Info) Description 11/15/2023 Refill [facility] 100 [facility] [address] [place] [phone] Nik Rahman MD [address] [facility] [address] [place] [phone] Social History Tobacco Use Types Packs/Day Years [...] on filedocumented in this encounter Care Teams Director Digital Advertising Relationship Specialty Start Date End Date Dori Casillas MD [address] [place], [place] PCP - General 07/07/20 documented as of this encounter
[2025-06-14 07:14] LABS: MANUAL DIFF FLAG NO
[2025-06-14 08:13] LABS: Hematocrit 39.8 % (42.0-52.0); Hemoglobin 13.4 g/dl (14.0-18.0); Imm Gran Abs Auto 0.01 X10*3/uL (0.00-0.03); Imm Gran Pct Auto 0.3 % (0.0-0.4); Lymphocytes Absolute Auto 1.0 X10*3/uL (1.2-4.9); Mean Corpuscular HGB Conc 33.7 g/dl (31.0-36.0); Mean Corpuscular Hemoglobin 30.2 pg (27.0-33.0); Mean Corpuscular Volume 89.8 fL (80.0-98.0); NRBC Abs Auto 0.000 X10*3/uL (0.0-0.012); NRBC Pct Auto 0.0 /100WBC (0.0-0.2); Platelet Count 187 X10*3/uL (160-400); Red Blood Count 4.43 X10*6/uL (4.60-5.80); White Blood Count 3.7 X10*3/uL (4.8-10.8)
[2025-06-14 08:36] LABS: Alanine Aminotransferase 23 U/L (0-40); Albumin Level 4.1 g/dL (3.5-5.0); Alkaline Phosphatase 73 U/L (39-117); Anion Gap 11 (12-20); Aspartate Amino Transferase 31 U/L (5-37); Blood Urea Nitrogen 13 mg/dL (9-16); Calcium 8.9 mg/dL (8.4-10.2); Carbon Dioxide 26 mmol/L (22-29); Chloride 104 mmol/L (96-108); Cholesterol 204 mg/dL (<200); Estimated Glomerular Filt Rate > 60; HDL Cholesterol 84 mg/dL (>40); Potassium 4.9 mmol/L (3.3-5.1); Sodium 136 mmol/L (135-145); Total Protein 6.8 g/dL (6.5-8.0); Triglycerides 79 mg/dL (<150)
[2025-06-14 08:44] LABS: Free T4 (Free Thyroxine) 0.92 ng/dL (0.71-1.85); Thyroid Stimulating Hormone 4.23 uIU/mL (0.32-4.0)
[2025-06-14 09:17] LABS: Folate 5.6 ng/mL (> or = 4.0); Vitamin B12 277 pg/mL (200-900)
== END 2025-06-14 06:59 | disposition home or self-care (01) ==
LOC: HO.LAB 06:58
PROVIDERS: PCP Internal Medicine; Visit Provider Internal Medicine
DX: E78.00 Pure hypercholesterolemia, unspecified (principal); Z13.21 Encounter for screening for nutritional disorder
CPT/HCPCS: 36415; 80053; 80061; 82306; 82607; 82746; 84439; 84443; 85025